=== PATIENT | female | born 1955 | race Caucasian/White ===

== ENCOUNTER 2017-05-28 14:44 | Emergency (ER) | payer MEDICARE | END 2017-05-28 16:17 | disposition home or self-care (01) | LOC: D.ER 14:44 | DX: S00.81XA Abrasion of other part of head, initial encounter (principal); W19.XXXA Unspecified fall, initial encounter; Y93.89 Activity, other specified; Y92.019 Unspecified place in single-family (private) house as the place of occurrence of the external cause; R51 Headache; I10 Essential (primary) hypertension; E11.9 Type 2 diabetes mellitus without complications; Z79.4 Long term (current) use of insulin; K21.9 Gastro-esophageal reflux disease without esophagitis; J44.9 Chronic obstructive pulmonary disease, unspecified; I50.9 Heart failure, unspecified ==

== ENCOUNTER 2017-11-14 17:07 | Inpatient (IN) | payer MEDICARE ==
[~2017-11-14] VITALS: Ht 157.5 cm; Wt 83.6 kg
--- NOTE | ~2017-11-14 | OP ---
PATIENT NAME: SARY REVELES MEDICAL RECORD: [id number] :57 LOCATION:D.[facility] D.[facility]07 ADMISSION DATE:11/14/17 SURGEON: YEMI RICHEY MD DATE OF OPERATION: 11/22/2017 SURGEON: Yemi Richey MD ANESTHESIA: General endotracheal, Edward Donovan MD OPERATIONS PERFORMED: 1. Video-assisted thoracoscopy, right hemithorax, for pleural fluid cultures and cytology. 2. Lung biopsy, right lower lobe. 3. Tissue cultures. 4. Bronchoscopy with bronchioalveolar lavage, right lower lobe, for cultures and cytology. PREOPERATIVE DIAGNOSIS: Recurrent right pleural effusion. POSTOPERATIVE DIAGNOSIS: Recurrent right pleural effusion. INDICATION FOR OPERATION: Recurrent right pleural effusion. FINDINGS OF THE OPERATION: Recurrent right pleural effusion. The lung was biopsied for cultures and histology. There were no obvious lymph nodes for resection. Cultures were taken for aerobe, anaerobe, TB, and fungus; both pleural fluid and tissue culture. Bronchoscopy demonstrated extrinsic compression of the lower lobe bronchus on the right. There were no obvious endobronchial lesions. Cultures from bronchioalveolar lavage was sent for aerobe, anaerobe, TB, and fungus. The bronchioalveolar lavage of the right lower lobe was also sent for cytology. ESTIMATED BLOOD LOSS: Less than 5 mL. DESCRIPTION OF PROCEDURE: After informed consent, adequate preoperative medication, and evaluation, the patient was brought to the operating room and placed on the table in the supine position. After induction of general endotracheal anesthesia and application of appropriate monitoring devices, the patient underwent exchange for a double lumen tube and flexible fiberoptic bronchoscopy. There were no obvious endobronchial lesions noted. The patient was then turned in left lateral decubitus position and the right chest was prepped and draped in sterile field utilizing Betadine scrub, alcohol, and Betadine solution. Betadine-impregnated drape was also used. Three ports were placed, one anterior fifth interspace, one posterior seventh interspace midscapular line, and one in the midaxillary line ninth interspace for the camera. The camera port was placed first. The other 2 were placed under direct vision. The lung was examined. Biopsies were taken of the lower lobe. The fluid was removed for aerobe, anaerobe, TB, fungus, and cytology. A search of the mediastinum was made for obvious lymph nodes and there were none obviously seen. The chest was irrigated and suctioned dry. The patient then underwent a talc poudrage after mechanical abrasion of the parietal pleura. Two chest tubes were placed, #28 Silastic, one anterior-superior and one posterior-inferior. The instrument count and sponge count were correct times 2. Wound was closed in layers utilizing 2-0 Vicryl on deep subcutaneous tissue. Skin was approximated with interrupted 2-0 TiCron sutures. Sterile dressings were applied. The OPERATIVE REPORT [id number] SARY REVELES patient tolerated the procedure well and was turned in a supine position. The exchange was made for a single lumen tube. The patient underwent flexible fiberoptic bronchoscopy. The orifice to the right lower lobe was narrowed, but there are no endobronchial lesions. Bronchioalveolar lavage was performed in the right lower lobe and culture was sent for aerobe, anaerobe, TB, and fungus. Another bronchoalveolar lavage of the lower lobe was done for cytology. The remainder of the tracheobronchial tree was normal. The scope was withdrawn. The patient was awakened and transferred to the ICU in stable condition. TRANSINT:[id number] Voice Confirmation ID: [id number] DOCUMENT ID: [id number] YEMI RICHEY MD at 1309 CC: [id number] DICTATION DATE: 11/22/17 1434 DIRECTOR TELECOMMUNICATIONS: 11/22/17 1505 ADM IN [place] [id number] [place] [id number]
--- NOTE | ~2017-11-14 | CN ---
PATIENT NAME:SARY REVELES MEDICAL RECORD: [id number] : 57 LOCATION:D. D.2130 ADMIT DATE: 11/14/17 ACCOUNT: [id number] CONSULTING PHYSICIAN: DARCY BELLE MD REFERRING PHYSICIAN: RUSTY PAYTON MD DATE OF CONSULTATION: 11/15/2017 CONSULT REQUESTING PHYSICIAN: Rusty Payton MD REASON FOR CONSULTATION: Large right-sided pleural effusion. HISTORY OF PRESENT ILLNESS: Ms. Reveles is a 62-year-old female who has a history of COPD. According to the patient 2-3 days ago, she has been sick and not feeling well. Yesterday, she was diaphoretic and she has a pleuritic type of chest pain. The patient came into the ER and evaluation workup showed she has leukocytosis as well as there is a large right-sided pleural effusion. The patient denies any weight loss. REVIEW OF SYSTEMS: As in history of present illness. PAST MEDICAL HISTORY: 1. COPD. 2. Coronary artery disease. 3. Hypertension. 4. Congestive heart failure. PAST SURGICAL HISTORY: 1. CABG. 2. Femoral popliteal bypass. 3. Tonsillectomy. 4. Surgery for carpal tunnel syndrome. ALLERGIES: SHE IS ALLERGIC TO CODEINE, LISINOPRIL. MEDICATIONS: [employer] is reviewed. PERSONAL AND SOCIAL HISTORY: The patient is an ex-smoker. She is a nondrinker. FAMILY HISTORY: Noncontributory. PHYSICAL EXAMINATION: GENERAL: Now, the patient is lying comfortable in bed. She is not in acute distress. VITAL SIGNS: The blood pressure is 108/50, pulse is 59, respiration is 18, temperature is 98.6, and SpO2 is 95% on 2 liters nasal cannula. HEENT: Conjunctivae are pink. Sclerae are not icteric. NECK: Supple, no JVD. CHEST: There are absent breath sounds on the right side with dullness on percussion. There is crackle. HEART: Rhythm regular, normal sound, no murmur. ABDOMEN: Soft, bowel sounds present. No hepatosplenomegaly. RECTAL: Deferred. EXTREMITIES: No cyanosis, no clubbing, no pedal edema. SKIN: Warm, normal turgor. CENTRAL NERVOUS SYSTEM: The patient is awake and alert. There are no obvious CONSULT REPORT [id number] SARY REVELES cranial nerve abnormality. The gait was not tested. IMAGING: CT scan of the chest: There is large right-sided pleural effusion. There is some reactive mediastinal paratracheal lymphadenopathy; 1. Nearly 2.5 cm in size. 2. A 4.7 cm adrenal adenoma. IMPRESSION: 1. Right-sided large pleural effusion, possible parapneumonic, possible associated with a congestive heart failure. 2. Pneumonia of right lower lobe, most likely community-acquired pneumonia. 3. Mediastinal lymphadenopathy, possible reactionary rule out malignant process. 4. Right compressive atelectasis of the lower lobe. 5. Acute exacerbation of chronic obstructive pulmonary disease. 6. Adrenal mass, possible adenoma. 7. Right-sided pleurisy. 8. History of congestive heart failure and coronary artery disease. RECOMMENDATION: 1. Start on Levaquin and Rocephin IV. 2. Continue nebulized medication. 3. We will proceed with CT-guided thoracentesis in the morning. 4. We will follow up labs and chest radiograph. Check alpha [address] Payton, thank you for involving me in the care of Ms. Reveles. TRANSINT:[id number] Voice Confirmation ID: [id number] DOCUMENT ID: [id number] DARCY BELLE MD at 1110 CC: [id number] DICTATION DATE: 11/15/171809 QUANTITATIVE STRATEGY ANALYST: 11/15/17 1842 DIS IN 12/11/17 [place] [id number] [place] [address]
[2017-11-14] MEDS ORDERED: [UNRECOGNIZED DRUG - REMARK] (17:17)
[2017-11-14] MEDS ORDERED: BP MED (17:17)
[2017-11-14 18:00] LABS: BASOPHILS 0.1 % (0-2); EOSINOPHILS 0.4 % (0-7); HEMATOCRIT 38.7 % (36.0-48.0); HEMOGLOBIN 12.7 g/dL (12-16); IMMATURE GRANULOCYTES 0.3 % (0-5); LYMPHOCYTES 9.1 % (15-50); MCH 29.5 pg (26.0-34.0); MCHC 32.8 g/dL (31.0-37.0); MEAN PLATELET VOLUME 9.2 fL (7.4-10.4); MONOCYTES 3.7 % (2-11); NEUTROPHILS 86.4 % (40-80); PLATELET COUNT 301 10x3/uL (130-400); RDW 15.1 % (11.5-14.5); WBC 13.1 10x3/uL (4.8-10.8)
[2017-11-14 18:50] LABS: ALBUMIN 3.3 g/dL (3.4-5.0); ALKALINE PHOSPHATASE 87 U/L (46-116); ALT (SGPT) 5 U/L (10-68); BILIRUBIN - TOTAL 0.48 mg/dL (0.2-1.3); CALC OSMOLALITY 291 mosm/kg (275-300); CARBON DIOXIDE 26.6 mmol/L (21.0-32.0); CHLORIDE - SERUM 101 mmol/L (98-107); CREATININE - SERUM 0.8 mg/dL (0.6-1.3); GLUCOSE 244 mg/dL (74-106); POTASSIUM - SERUM 3.3 mmol/L (3.5-5.1); PROTEIN - SERUM 7.8 g/dL (6.4-8.2); SODIUM 143 mmol/L (136-145); UREA NITROGEN 10 mg/dL (7-18); eGFR NON AFRICAN AMERICAN 77 mL/min (90-120)
[2017-11-14 19:05] VITALS: BP 225/83
[2017-11-14 19:27] LABS: APTT 28.9 SECONDS (22.8-39.4); INR 1.12 (0.85-1.17)
[2017-11-14 19:42] LABS: CKMB 0.7 U/L (0.0-3.6); CREATINE KINASE 66 UL (21-215); PRO BNP 2226 pg/mL (0-125)
[2017-11-14 20:34] VITALS: BP 218/91
[2017-11-14 21:22] VITALS: BP 193/67
[2017-11-14 22:19] VITALS: BP 160/56
[2017-11-15] VITALS (7 sets, daily range): BP systolic 102–191; BP diastolic 37–71
[2017-11-15 00:02] LABS: CKMB 0.9 U/L (0.0-3.6); CREATINE KINASE 52 UL (21-215); TROPONIN-I < 0.017 ng/mL (0.000-0.060)
[2017-11-15] MEDS ORDERED: HUMALOG 30100 UNITS/ SC (02:45)
[2017-11-15] MEDS ORDERED: NEURONTIN 300300 MG PO (02:46)
[2017-11-15] MEDS ORDERED: LANTUS INSULIN10 ML SC (02:46)
[2017-11-15 04:05] LABS: BASOPHILS 0 % (0-2); EOSINOPHILS 0 % (0-7); IMMATURE GRANULOCYTES 0.2 % (0-5); LYMPHOCYTES 9.6 % (15-50); MCH 28.9 pg (26.0-34.0); MCHC 32.4 g/dL (31.0-37.0); MCV 89.5 fL (80.0-100.0); MEAN PLATELET VOLUME 8.9 fL (7.4-10.4); MONOCYTES 0.6 % (2-11); NEUTROPHILS 89.6 % (40-80); PLATELET COUNT 267 10x3/uL (130-400)
[2017-11-15 04:55] LABS: ALBUMIN 2.7 g/dL (3.4-5.0); ALKALINE PHOSPHATASE 62 U/L (46-116); ALT (SGPT) 6 U/L (10-68); CALCIUM 8.5 mg/dL (8.5-10.1); CARBON DIOXIDE 28.3 mmol/L (21.0-32.0); CHLORIDE - SERUM 104 mmol/L (98-107); CKMB 0.8 U/L (0.0-3.6); CREATINE KINASE 39 UL (21-215); CREATININE - SERUM 0.8 mg/dL (0.6-1.3); POTASSIUM - SERUM 3.3 mmol/L (3.5-5.1); PROTEIN - SERUM 7.1 g/dL (6.4-8.2); SODIUM 141 mmol/L (136-145); TROPONIN-I < 0.017 ng/mL (0.000-0.060); UREA NITROGEN 10 mg/dL (7-18); eGFR NON AFRICAN AMERICAN 77 mL/min (90-120)
[2017-11-15 04:57] LABS: CALC OSMOLALITY 291 mosm/kg (275-300); GLUCOSE 323 mg/dL (74-106)
[2017-11-15] MEDS ORDERED: COREG6.25 MG PO (06:57)
[2017-11-15] MEDS ORDERED: ISOSORBIDE MON120 M1 PO (06:58)
[2017-11-15] MEDS ORDERED: HYDRALAZINE HCL25 MG PO (06:58)
[2017-11-15] MEDS ORDERED: LASIX40 MG PO (06:59)
[2017-11-15] MEDS ORDERED: BAYER CHEWABLE81 MG PO (06:59)
[2017-11-15] MEDS ORDERED: OMEPRAZOLE20 M1 PO (07:00)
[2017-11-15] MEDS ORDERED: SYMBICORT 16010.2 GM INH (07:00)
[2017-11-15] MEDS ORDERED: MS CONTIN15 MG PO (07:01)
[2017-11-15] MEDS ORDERED: PROVENTIL HFA6.7 GM INH (07:01)
[2017-11-15] MEDS ORDERED: ULTRAM50 MG PO (07:02)
[2017-11-15 10:44] LABS: CKMB 1.1 U/L (0.0-3.6); CREATINE KINASE 44 UL (21-215); TROPONIN-I < 0.017 ng/mL (0.000-0.060)
[2017-11-16 00:42] LABS: HEMATOCRIT 31.5 % (36.0-48.0); HEMOGLOBIN 10.5 g/dL (12-16); MCH 29.4 pg (26.0-34.0); MCHC 33.3 g/dL (31.0-37.0); MCV 88.2 fL (80.0-100.0); MEAN PLATELET VOLUME 7.9 fL (7.4-10.4); RBC 3.57 10x6/uL (4.00-5.40); RDW 15.5 % (11.5-14.5); WBC 12.6 10x3/uL (4.8-10.8)
[2017-11-16 07:23] LABS: BASOPHILS 0.1 % (0-2); EOSINOPHILS 0.4 % (0-7); HEMATOCRIT 34.3 % (36.0-48.0); HEMOGLOBIN 11.2 g/dL (12-16); IMMATURE GRANULOCYTES 0.4 % (0-5); LYMPHOCYTES 20.3 % (15-50); MCH 29.1 pg (26.0-34.0); MCHC 32.7 g/dL (31.0-37.0); MCV 89.1 fL (80.0-100.0); MONOCYTES 5.8 % (2-11); PLATELET COUNT 290 10x3/uL (130-400); RBC 3.85 10x6/uL (4.00-5.40); RDW 15.2 % (11.5-14.5); WBC 11.3 10x3/uL (4.8-10.8)
[2017-11-16 07:39] LABS: ALBUMIN 2.6 g/dL (3.4-5.0); ANION GAP 14.3 mmol/L (8-16); BILIRUBIN - TOTAL 0.16 mg/dL (0.2-1.3); CALCIUM 8.7 mg/dL (8.5-10.1); CARBON DIOXIDE 27.4 mmol/L (21.0-32.0); CREATININE - SERUM 0.9 mg/dL (0.6-1.3); PROTEIN - SERUM 6.8 g/dL (6.4-8.2)
[2017-11-16 07:42] LABS: POTASSIUM - SERUM 2.7 mmol/L (3.5-5.1)
[2017-11-16 08:01] VITALS: BP 130/53
[2017-11-16 09:19] LABS: INR 1.19 (0.85-1.17); PROTIME 14.7 SECONDS (11.6-15.0)
[2017-11-16 11:32] VITALS: BP 159/39
[2017-11-16 17:13] LABS: PROTEIN - BODY FLUID 3.9 G/DL
[2017-11-16 18:44] LABS: MACROPHAGES BF 28 %; MESOTHELIALS BF 12 %; NEUT - BF 13 %
[2017-11-16 20:33] VITALS: BP 155/49
[2017-11-17 05:43] VITALS: BP 160/50
[2017-11-17 06:06] LABS: BASOPHILS 0.1 % (0-2); EOSINOPHILS 0.7 % (0-7); HEMATOCRIT 34.9 % (36.0-48.0); HEMOGLOBIN 11.1 g/dL (12-16); IMMATURE GRANULOCYTES 0.3 % (0-5); LYMPHOCYTES 17.8 % (15-50); MCHC 31.8 g/dL (31.0-37.0); MONOCYTES 6.6 % (2-11); NEUTROPHILS 74.5 % (40-80); PLATELET COUNT 283 10x3/uL (130-400); RBC 3.83 10x6/uL (4.00-5.40); RDW 15.6 % (11.5-14.5); WBC 9.8 10x3/uL (4.8-10.8)
[2017-11-17 06:07] LABS: MCV 91.1 fL (80.0-100.0)
[2017-11-17 06:28] LABS: ALBUMIN 2.5 g/dL (3.4-5.0); BILIRUBIN - TOTAL 0.23 mg/dL (0.2-1.3); CALCIUM 8.6 mg/dL (8.5-10.1); CARBON DIOXIDE 28.4 mmol/L (21.0-32.0); CREATININE - SERUM 0.9 mg/dL (0.6-1.3); POTASSIUM - SERUM 3.4 mmol/L (3.5-5.1); PROTEIN - SERUM 6.7 g/dL (6.4-8.2)
[2017-11-17 08:49] VITALS: BP 197/69
[2017-11-17 11:30] VITALS: BP 158/44
[2017-11-17 16:07] LABS: CKMB 0.4 U/L (0.0-3.6); CREATINE KINASE 30 UL (21-215); TROPONIN-I < 0.017 ng/mL (0.000-0.060)
[2017-11-17 20:00] VITALS: BP 185/71
[2017-11-17 20:40] LABS: CKMB 0.3 U/L (0.0-3.6); CREATINE KINASE 30 UL (21-215); TROPONIN-I < 0.017 ng/mL (0.000-0.060)
[2017-11-18] VITALS: BP 184/45
[2017-11-18 00:41] LABS: HEMATOCRIT 32.6 % (36.0-48.0); HEMOGLOBIN 10.4 g/dL (12-16); MCHC 31.9 g/dL (31.0-37.0); MCV 90.8 fL (80.0-100.0); MEAN PLATELET VOLUME 8.8 fL (7.4-10.4); RBC 3.59 10x6/uL (4.00-5.40); RDW 15.4 % (11.5-14.5)
[2017-11-18 02:55] LABS: BASOPHILS 0.1 % (0-2); EOSINOPHILS 1.1 % (0-7); HEMATOCRIT 34.2 % (36.0-48.0); HEMOGLOBIN 10.9 g/dL (12-16); IMMATURE GRANULOCYTES 0.2 % (0-5); LYMPHOCYTES 22.9 % (15-50); MCH 29.2 pg (26.0-34.0); MCHC 31.9 g/dL (31.0-37.0); MCV 91.7 fL (80.0-100.0); MEAN PLATELET VOLUME 8.7 fL (7.4-10.4); MONOCYTES 6.8 % (2-11); NEUTROPHILS 68.9 % (40-80); PLATELET COUNT 248 10x3/uL (130-400); RBC 3.73 10x6/uL (4.00-5.40); RDW 15.4 % (11.5-14.5); WBC 9.3 10x3/uL (4.8-10.8)
[2017-11-18 03:13] LABS: ALBUMIN 2.4 g/dL (3.4-5.0); ALKALINE PHOSPHATASE 50 U/L (46-116); BILIRUBIN - TOTAL 0.29 mg/dL (0.2-1.3); CALCIUM 8.6 mg/dL (8.5-10.1); CARBON DIOXIDE 27.1 mmol/L (21.0-32.0); CHLORIDE - SERUM 109 mmol/L (98-107); CKMB 0.1 U/L (0.0-3.6); CREATINE KINASE 26 UL (21-215); CREATININE - SERUM 0.8 mg/dL (0.6-1.3); POTASSIUM - SERUM 3.8 mmol/L (3.5-5.1); PROTEIN - SERUM 6.6 g/dL (6.4-8.2); SODIUM 145 mmol/L (136-145); UREA NITROGEN 7 mg/dL (7-18); eGFR NON AFRICAN AMERICAN 77 mL/min (90-120)
[2017-11-18 03:14] LABS: ALT (SGPT) 5 U/L (10-68); CALC OSMOLALITY 285 mosm/kg (275-300); GLUCOSE 82 mg/dL (74-106); TROPONIN-I < 0.017 ng/mL (0.000-0.060)
[2017-11-18 04:00] VITALS: BP 186/57
[2017-11-18 08:41] VITALS: BP 199/64
[2017-11-18 11:48] VITALS: BP 161/59
[2017-11-18 17:07] LABS: AFB SPECIMEN PROCESSING Not Indicated (())
[2017-11-18 20:00] VITALS: BP 164/42
[2017-11-19 04:00] VITALS: BP 186/48
[2017-11-19 05:25] LABS: BASOPHILS 0.1 % (0-2); EOSINOPHILS 1.1 % (0-7); HEMATOCRIT 36.1 % (36.0-48.0); HEMOGLOBIN 11.4 g/dL (12-16); IMMATURE GRANULOCYTES 0.3 % (0-5); LYMPHOCYTES 13.9 % (15-50); MCHC 31.6 g/dL (31.0-37.0); MCV 91.9 fL (80.0-100.0); MEAN PLATELET VOLUME 9.2 fL (7.4-10.4); MONOCYTES 5.3 % (2-11); NEUTROPHILS 79.3 % (40-80); PLATELET COUNT 278 10x3/uL (130-400); RBC 3.93 10x6/uL (4.00-5.40); RDW 15.6 % (11.5-14.5); WBC 10.6 10x3/uL (4.8-10.8)
[2017-11-19 06:06] LABS: ALBUMIN 2.6 g/dL (3.4-5.0); ANION GAP 14.7 mmol/L (8-16); BILIRUBIN - TOTAL 0.18 mg/dL (0.2-1.3); CARBON DIOXIDE 26.5 mmol/L (21.0-32.0); CREATININE - SERUM 0.9 mg/dL (0.6-1.3); POTASSIUM - SERUM 4.2 mmol/L (3.5-5.1)
[2017-11-19 08:10] VITALS: BP 176/55
[2017-11-19 11:29] LABS: % SATURATION 14 % (15-55); IRON 30 ug/dl (35-150); TOTAL IRON BIND CAPACITY 204 ug/dl (260-445); UNSAT IRON BIND CAPACITY 174 ug/dl (150-375)
[2017-11-19 11:31] VITALS: BP 174/52
[2017-11-19 15:57] VITALS: BP 182/62
[2017-11-19 20:00] VITALS: BP 166/48
[2017-11-20 00:18] VITALS: BP 169/61
[2017-11-20 06:07] VITALS: BP 169/46
[2017-11-20 06:57] LABS: BASOPHILS 0.1 % (0-2); EOSINOPHILS 1.3 % (0-7); HEMATOCRIT 32.3 % (36.0-48.0); HEMOGLOBIN 10.3 g/dL (12-16); IMMATURE GRANULOCYTES 0.4 % (0-5); LYMPHOCYTES 18.4 % (15-50); MCH 28.8 pg (26.0-34.0); MCHC 31.9 g/dL (31.0-37.0); MCV 90.2 fL (80.0-100.0); MEAN PLATELET VOLUME 8.7 fL (7.4-10.4); MONOCYTES 6.5 % (2-11); NEUTROPHILS 73.3 % (40-80); PLATELET COUNT 242 10x3/uL (130-400); RBC 3.58 10x6/uL (4.00-5.40); RDW 15.5 % (11.5-14.5); WBC 8.9 10x3/uL (4.8-10.8)
[2017-11-20 07:27] LABS: FOLATE (FOLIC ACID) - SERUM 4.3 ng/mL (>3.0)
[2017-11-20 07:38] LABS: ALBUMIN 2.4 g/dL (3.4-5.0); ANION GAP 13.9 mmol/L (8-16); BILIRUBIN - TOTAL 0.21 mg/dL (0.2-1.3); CALCIUM 8.7 mg/dL (8.5-10.1); CARBON DIOXIDE 24.1 mmol/L (21.0-32.0); PROTEIN - SERUM 6.5 g/dL (6.4-8.2)
[2017-11-20 08:32] VITALS: BP 161/65
[2017-11-20 11:18] LABS: APPEARANCE CLEAR (CLEAR); BILIRUBIN NEGATIVE (NEGATIVE); COLOR STRAW (YELLOW); EPITHELIAL CELLS RARE /hpf (0-5); GLUCOSE NEGATIVE (NEGATIVE); KETONE NEGATIVE (NEGATIVE); NITRITE NEGATIVE (NEGATIVE); PROTEIN NEGATIVE (NEGATIVE); UROBILINOGEN NORMAL (NORMAL); WHITE CELLS - URINE OCC /hpf (0-5); YEAST RARE /hpf (NONE SEEN)
[2017-11-20 11:31] VITALS: BP 199/63
[2017-11-20 13:18] LABS: ANA REFLEX - ANTICHROMATIN ABS <0.2 AI (0.0-0.9); ANA REFLEX - CENTROMERE B ABS <0.2 AI (0.0-0.9); ANA REFLEX - DBL STRANDED DNA 2 IU/mL (0-9); ANA REFLEX - DIRECT Positive (Negative); ANA REFLEX - JO-1 AB <0.2 AI (0.0-0.9); ANA REFLEX - RNP ANTIBODIES 0.3 AI (0.0-0.9); ANA REFLEX - SCL-70 2.7 AI (0.0-0.9); ANA REFLEX - SJOGRENS AB SSA <0.2 AI (0.0-0.9); ANA REFLEX - SJOGRENS AB SSB <0.2 AI (0.0-0.9); ANA REFLEX - SMITH AB <0.2 AI (0.0-0.9)
[2017-11-20 14:19] VITALS: BMI 31.8
[2017-11-20 16:54] VITALS: BP 157/51
[2017-11-20 20:45] VITALS: BP 159/37
[2017-11-21 01:02] VITALS: BP 146/43
[2017-11-21 05:59] LABS: HEMATOCRIT 36.5 % (36.0-48.0); HEMOGLOBIN 11.4 g/dL (12-16); MCH 28.9 pg (26.0-34.0); MCHC 31.2 g/dL (31.0-37.0); RBC 3.95 10x6/uL (4.00-5.40); RDW 15.6 % (11.5-14.5); WBC 9.4 10x3/uL (4.8-10.8)
[2017-11-21 06:12] VITALS: BP 168/46
[2017-11-21 06:17] LABS: ALBUMIN 2.6 g/dL (3.4-5.0); ALKALINE PHOSPHATASE 54 U/L (46-116); ALT (SGPT) 6 U/L (10-68); BILIRUBIN - TOTAL 0.28 mg/dL (0.2-1.3); CALC OSMOLALITY 285 mosm/kg (275-300); CALCIUM 8.9 mg/dL (8.5-10.1); CARBON DIOXIDE 28.8 mmol/L (21.0-32.0); CHLORIDE - SERUM 106 mmol/L (98-107); CREATININE - SERUM 0.8 mg/dL (0.6-1.3); GLUCOSE 127 mg/dL (74-106); POTASSIUM - SERUM 3.7 mmol/L (3.5-5.1); PROTEIN - SERUM 7.4 g/dL (6.4-8.2); SODIUM 143 mmol/L (136-145); UREA NITROGEN 10 mg/dL (7-18); eGFR NON AFRICAN AMERICAN 77 mL/min (90-120)
[2017-11-21 06:34] LABS: MCV 92.4 fL (80.0-100.0)
[2017-11-21 08:21] VITALS: BP 179/57
[2017-11-21 08:24] LABS: APTT 38.3 SECONDS (22.8-39.4)
[2017-11-21 08:29] LABS: INR 1.18 (0.85-1.17); PROTIME 14.6 SECONDS (11.6-15.0)
[2017-11-21 11:13] LABS: FUNGUS STAIN Final report (())
[2017-11-21 11:52] VITALS: BP 137/48
[2017-11-21 15:47] VITALS: BP 160/55
[2017-11-21 20:35] VITALS: BP 146/61
[2017-11-22] VITALS (41 sets, daily range): BP systolic 103–153; BP diastolic 32–74
[2017-11-22 00:50] LABS: BASOPHILS 0.1 % (0-2); EOSINOPHILS 1.7 % (0-7); HEMATOCRIT 32.3 % (36.0-48.0); HEMOGLOBIN 10.3 g/dL (12-16); IMMATURE GRANULOCYTES 0.5 % (0-5); MCHC 31.9 g/dL (31.0-37.0); MEAN PLATELET VOLUME 8.9 fL (7.4-10.4); MONOCYTES 6.4 % (2-11); NEUTROPHILS 74.3 % (40-80); PLATELET COUNT 284 10x3/uL (130-400); RBC 3.55 10x6/uL (4.00-5.40); RDW 15.3 % (11.5-14.5); WBC 10.7 10x3/uL (4.8-10.8)
[2017-11-22 00:56] LABS: ANION GAP 10.6 mmol/L (8-16); CALCIUM 8.8 mg/dL (8.5-10.1); CREATININE - SERUM 1.2 mg/dL (0.6-1.3); POTASSIUM - SERUM 3.6 mmol/L (3.5-5.1)
[2017-11-23] VITALS (89 sets, daily range): BP systolic 104–174; BP diastolic 28–76
[2017-11-23 04:15] LABS: BASOPHILS 0.1 % (0-2); EOSINOPHILS 0.6 % (0-7); HEMATOCRIT 33.3 % (36.0-48.0); HEMOGLOBIN 10.4 g/dL (12-16); IMMATURE GRANULOCYTES 0.3 % (0-5); LYMPHOCYTES 11.2 % (15-50); MCH 28.5 pg (26.0-34.0); MCHC 31.2 g/dL (31.0-37.0); MCV 91.2 fL (80.0-100.0); MEAN PLATELET VOLUME 8.7 fL (7.4-10.4); MONOCYTES 7.1 % (2-11); NEUTROPHILS 80.7 % (40-80); PLATELET COUNT 268 10x3/uL (130-400); RBC 3.65 10x6/uL (4.00-5.40); RDW 15.2 % (11.5-14.5); WBC 12.9 10x3/uL (4.8-10.8)
[2017-11-23 04:32] LABS: ALBUMIN 2.1 g/dL (3.4-5.0); ANION GAP 8.4 mmol/L (8-16); BILIRUBIN - TOTAL 0.27 mg/dL (0.2-1.3); CARBON DIOXIDE 30.2 mmol/L (21.0-32.0); CREATININE - SERUM 1.1 mg/dL (0.6-1.3); POTASSIUM - SERUM 3.6 mmol/L (3.5-5.1); PROTEIN - SERUM 6.2 g/dL (6.4-8.2)
[2017-11-24] VITALS (62 sets, daily range): BP systolic 104–160; BP diastolic 26–72
[2017-11-24 06:27] LABS: BASOPHILS 0.1 % (0-2); EOSINOPHILS 0.7 % (0-7); HEMATOCRIT 29.7 % (36.0-48.0); HEMOGLOBIN 9.3 g/dL (12-16); IMMATURE GRANULOCYTES 0.4 % (0-5); LYMPHOCYTES 8.5 % (15-50); MCH 28.4 pg (26.0-34.0); MCHC 31.3 g/dL (31.0-37.0); MCV 90.8 fL (80.0-100.0); MEAN PLATELET VOLUME 8.6 fL (7.4-10.4); MONOCYTES 6.5 % (2-11); NEUTROPHILS 83.8 % (40-80); PLATELET COUNT 251 10x3/uL (130-400); RBC 3.27 10x6/uL (4.00-5.40); RDW 15.3 % (11.5-14.5)
[2017-11-24 07:03] LABS: ALBUMIN 1.8 g/dL (3.4-5.0); ANION GAP 10.9 mmol/L (8-16); BILIRUBIN - TOTAL 0.29 mg/dL (0.2-1.3); CALCIUM 8.2 mg/dL (8.5-10.1); CARBON DIOXIDE 25.9 mmol/L (21.0-32.0); CREATININE - SERUM 0.9 mg/dL (0.6-1.3); POTASSIUM - SERUM 3.8 mmol/L (3.5-5.1); PROTEIN - SERUM 5.8 g/dL (6.4-8.2)
[2017-11-24 18:07] LABS: AFB SPECIMEN PROCESSING Not Indicated (())
[2017-11-24 18:07] LABS: AFB SPECIMEN PROCESSING Concentration (())
[2017-11-24 18:07] LABS: AFB SPECIMEN PROCESSING Concentration (())
[2017-11-25] VITALS (24 sets, daily range): BP systolic 99–152; BP diastolic 31–56
[2017-11-25 02:24] LABS: HEMATOCRIT 27.2 % (36.0-48.0); HEMOGLOBIN 8.5 g/dL (12-16); MCH 28.9 pg (26.0-34.0); MCHC 31.3 g/dL (31.0-37.0); MCV 92.5 fL (80.0-100.0); MEAN PLATELET VOLUME 8.7 fL (7.4-10.4); RBC 2.94 10x6/uL (4.00-5.40); RDW 15.6 % (11.5-14.5); WBC 11.8 10x3/uL (4.8-10.8)
[2017-11-25 05:21] LABS: BASOPHILS 0.1 % (0-2); EOSINOPHILS 0.6 % (0-7); HEMATOCRIT 29.7 % (36.0-48.0); HEMOGLOBIN 9.2 g/dL (12-16); IMMATURE GRANULOCYTES 0.2 % (0-5); LYMPHOCYTES 6.4 % (15-50); MCH 28.8 pg (26.0-34.0); MCV 92.8 fL (80.0-100.0); MEAN PLATELET VOLUME 8.8 fL (7.4-10.4); MONOCYTES 5.5 % (2-11); NEUTROPHILS 87.2 % (40-80); PLATELET COUNT 251 10x3/uL (130-400); RDW 15.5 % (11.5-14.5)
[2017-11-25 05:33] LABS: ALBUMIN 1.8 g/dL (3.4-5.0); BILIRUBIN - TOTAL 0.46 mg/dL (0.2-1.3); CARBON DIOXIDE 27.8 mmol/L (21.0-32.0); CREATININE - SERUM 0.9 mg/dL (0.6-1.3); POTASSIUM - SERUM 3.8 mmol/L (3.5-5.1)
[2017-11-26] VITALS (23 sets, daily range): BP systolic 101–182; BP diastolic 29–89; Ht 157.5 cm; Wt 83.6 kg
[2017-11-26 06:53] LABS: BASOPHILS 0.2 % (0-2); EOSINOPHILS 1.1 % (0-7); HEMATOCRIT 29.7 % (36.0-48.0); HEMOGLOBIN 9.4 g/dL (12-16); IMMATURE GRANULOCYTES 0.4 % (0-5); LYMPHOCYTES 8.3 % (15-50); MCH 28.9 pg (26.0-34.0); MCHC 31.6 g/dL (31.0-37.0); MCV 91.4 fL (80.0-100.0); MONOCYTES 5.9 % (2-11); NEUTROPHILS 84.1 % (40-80); PLATELET COUNT 289 10x3/uL (130-400); RBC 3.25 10x6/uL (4.00-5.40); RDW 15.4 % (11.5-14.5)
[2017-11-26 07:11] LABS: CALC OSMOLALITY 282 mosm/kg (275-300); CALCIUM 8.2 mg/dL (8.5-10.1); CARBON DIOXIDE 25.5 mmol/L (21.0-32.0); CHLORIDE - SERUM 104 mmol/L (98-107); CREATININE - SERUM 0.8 mg/dL (0.6-1.3); GLUCOSE 182 mg/dL (74-106); POTASSIUM - SERUM 3.6 mmol/L (3.5-5.1); SODIUM 140 mmol/L (136-145); UREA NITROGEN 9 mg/dL (7-18); eGFR NON AFRICAN AMERICAN 77 mL/min (90-120)
[2017-11-26 09:08] LABS: FUNGUS STAIN Final report (())
[2017-11-26 09:08] LABS: FUNGUS STAIN Final report (())
[2017-11-26 09:08] LABS: FUNGUS STAIN Final report (())
[2017-11-27] VITALS (17 sets, daily range): BP systolic 101–186; BP diastolic 33–97
[2017-11-27 04:02] LABS: HEMATOCRIT 28.8 % (36.0-48.0); HEMOGLOBIN 9.2 g/dL (12-16); MCH 28.8 pg (26.0-34.0); MCHC 31.9 g/dL (31.0-37.0); MCV 90.3 fL (80.0-100.0); MEAN PLATELET VOLUME 8.6 fL (7.4-10.4); RBC 3.19 10x6/uL (4.00-5.40); RDW 15.5 % (11.5-14.5); WBC 11.4 10x3/uL (4.8-10.8)
[2017-11-27 04:15] LABS: ALBUMIN 1.8 g/dL (3.4-5.0); ANION GAP 13.2 mmol/L (8-16); BILIRUBIN - TOTAL 0.28 mg/dL (0.2-1.3); CALCIUM 8.3 mg/dL (8.5-10.1); CARBON DIOXIDE 26.1 mmol/L (21.0-32.0); CREATININE - SERUM 0.9 mg/dL (0.6-1.3); POTASSIUM - SERUM 3.3 mmol/L (3.5-5.1)
[2017-11-28 01:42] VITALS: BP 146/43
[2017-11-28 05:46] LABS: HEMATOCRIT 31.8 % (36.0-48.0); MCH 28.6 pg (26.0-34.0); MCHC 31.4 g/dL (31.0-37.0); MCV 90.9 fL (80.0-100.0); MEAN PLATELET VOLUME 8.8 fL (7.4-10.4); RBC 3.5 10x6/uL (4.00-5.40); RDW 15.9 % (11.5-14.5); WBC 11.4 10x3/uL (4.8-10.8)
[2017-11-28 06:06] LABS: ALBUMIN 1.9 g/dL (3.4-5.0); ALKALINE PHOSPHATASE 66 U/L (46-116); ALT (SGPT) 7 U/L (10-68); BILIRUBIN - TOTAL 0.28 mg/dL (0.2-1.3); CALCIUM 8.2 mg/dL (8.5-10.1); CARBON DIOXIDE 26.5 mmol/L (21.0-32.0); CHLORIDE - SERUM 106 mmol/L (98-107); CREATININE - SERUM 0.8 mg/dL (0.6-1.3); GLUCOSE 196 mg/dL (74-106); POTASSIUM - SERUM 3.9 mmol/L (3.5-5.1); PROTEIN - SERUM 6.3 g/dL (6.4-8.2); SODIUM 141 mmol/L (136-145); eGFR NON AFRICAN AMERICAN 77 mL/min (90-120)
[2017-11-28 06:07] LABS: CALC OSMOLALITY 282 mosm/kg (275-300); UREA NITROGEN 4 mg/dL (7-18)
[2017-11-28 08:17] VITALS: BP 166/48
[2017-11-28 10:58] VITALS: BP 152/53
[2017-11-28 16:12] VITALS: BP 146/64
[2017-11-28 20:25] VITALS: BP 127/55
[2017-11-29 01:16] VITALS: BP 138/45
[2017-11-29 06:33] LABS: HEMATOCRIT 31.6 % (36.0-48.0); HEMOGLOBIN 9.8 g/dL (12-16); MCH 28.7 pg (26.0-34.0); MCV 92.7 fL (80.0-100.0); MEAN PLATELET VOLUME 9.1 fL (7.4-10.4); RBC 3.41 10x6/uL (4.00-5.40); WBC 13.5 10x3/uL (4.8-10.8)
[2017-11-29 06:59] LABS: ALBUMIN 1.9 g/dL (3.4-5.0); ALKALINE PHOSPHATASE 52 U/L (46-116); CALC OSMOLALITY 280 mosm/kg (275-300); CALCIUM 8.2 mg/dL (8.5-10.1); CARBON DIOXIDE 27.6 mmol/L (21.0-32.0); CHLORIDE - SERUM 106 mmol/L (98-107); CREATININE - SERUM 0.7 mg/dL (0.6-1.3); GLUCOSE 159 mg/dL (74-106); POTASSIUM - SERUM 3.7 mmol/L (3.5-5.1); PROTEIN - SERUM 6.1 g/dL (6.4-8.2); SODIUM 141 mmol/L (136-145); UREA NITROGEN 5 mg/dL (7-18); eGFR NON AFRICAN AMERICAN 90 mL/min (90-120)
[2017-11-29 07:11] LABS: ALT (SGPT) 9 U/L (10-68)
[2017-11-29 08:01] VITALS: BP 156/49
[2017-11-29 11:21] VITALS: BP 159/52
[2017-11-29 15:33] VITALS: BP 141/55
[2017-11-29 20:57] VITALS: BP 140/47
[2017-11-30 04:00] VITALS: BP 159/63
[2017-11-30 06:54] LABS: HEMATOCRIT 31.2 % (36.0-48.0); HEMOGLOBIN 9.9 g/dL (12-16); MCHC 31.7 g/dL (31.0-37.0); MCV 91.5 fL (80.0-100.0); RBC 3.41 10x6/uL (4.00-5.40); RDW 16.2 % (11.5-14.5); WBC 11.3 10x3/uL (4.8-10.8)
[2017-11-30 07:14] LABS: ALKALINE PHOSPHATASE 53 U/L (46-116); ALT (SGPT) 8 U/L (10-68); BILIRUBIN - TOTAL 0.33 mg/dL (0.2-1.3); CALC OSMOLALITY 282 mosm/kg (275-300); CALCIUM 8.1 mg/dL (8.5-10.1); CARBON DIOXIDE 28.2 mmol/L (21.0-32.0); CHLORIDE - SERUM 105 mmol/L (98-107); CREATININE - SERUM 0.7 mg/dL (0.6-1.3); GLUCOSE 172 mg/dL (74-106); POTASSIUM - SERUM 3.4 mmol/L (3.5-5.1); PROTEIN - SERUM 6.3 g/dL (6.4-8.2); SODIUM 141 mmol/L (136-145); UREA NITROGEN 6 mg/dL (7-18); eGFR NON AFRICAN AMERICAN 90 mL/min (90-120)
[2017-11-30 08:30] VITALS: BP 174/66
[2017-11-30 09:03] LABS: APTT 35.2 SECONDS (22.8-39.4); INR 1.3 (0.85-1.17); PROTIME 15.8 SECONDS (11.6-15.0)
[2017-11-30 12:01] VITALS: BP 173/68
[2017-11-30 12:09] LABS: PROTEIN - BODY FLUID 2.2 G/DL
[2017-11-30 12:25] LABS: NEUT - BF 22 %
[2017-11-30 20:00] VITALS: BP 155/52
[2017-12-01] VITALS: BP 140/45
[2017-12-01 04:00] VITALS: BP 158/49
[2017-12-01 05:23] LABS: HEMATOCRIT 31.6 % (36.0-48.0); HEMOGLOBIN 9.7 g/dL (12-16); MCH 28.6 pg (26.0-34.0); MCHC 30.7 g/dL (31.0-37.0); MCV 93.2 fL (80.0-100.0); MEAN PLATELET VOLUME 8.7 fL (7.4-10.4); RBC 3.39 10x6/uL (4.00-5.40); RDW 16.7 % (11.5-14.5); WBC 9.8 10x3/uL (4.8-10.8)
[2017-12-01 06:25] LABS: ALBUMIN 1.9 g/dL (3.4-5.0); ALKALINE PHOSPHATASE 41 U/L (46-116); ALT (SGPT) 9 U/L (10-68); BILIRUBIN - TOTAL 0.31 mg/dL (0.2-1.3); CALC OSMOLALITY 279 mosm/kg (275-300); CHLORIDE - SERUM 104 mmol/L (98-107); CREATININE - SERUM 0.8 mg/dL (0.6-1.3); GLUCOSE 154 mg/dL (74-106); POTASSIUM - SERUM 3.2 mmol/L (3.5-5.1); SODIUM 140 mmol/L (136-145); UREA NITROGEN 6 mg/dL (7-18); eGFR NON AFRICAN AMERICAN 77 mL/min (90-120)
[2017-12-01 07:59] VITALS: BP 136/72
[2017-12-01 11:06] VITALS: BP 132/66
[2017-12-01 15:06] VITALS: BP 130/64
[2017-12-01 20:00] VITALS: BP 125/39
[2017-12-02] VITALS: BP 133/41
[2017-12-02 04:00] VITALS: BP 132/39
[2017-12-02 06:25] LABS: CARBON DIOXIDE 30.9 mmol/L (21.0-32.0); CHLORIDE - SERUM 104 mmol/L (98-107); CREATININE - SERUM 0.8 mg/dL (0.6-1.3); POTASSIUM - SERUM 3.5 mmol/L (3.5-5.1); SODIUM 138 mmol/L (136-145); eGFR NON AFRICAN AMERICAN 77 mL/min (90-120)
[2017-12-02 06:26] LABS: CALC OSMOLALITY 279 mosm/kg (275-300); GLUCOSE 225 mg/dL (74-106); INR 1.38 (0.85-1.17); PROTIME 16.5 SECONDS (11.6-15.0); UREA NITROGEN 4 mg/dL (7-18)
[2017-12-02 06:50] LABS: BASOPHILS 0.1 % (0-2); EOSINOPHILS 0.8 % (0-7); HEMATOCRIT 30.4 % (36.0-48.0); HEMOGLOBIN 9.4 g/dL (12-16); IMMATURE GRANULOCYTES 0.7 % (0-5); LYMPHOCYTES 11.1 % (15-50); MCH 28.9 pg (26.0-34.0); MCHC 30.9 g/dL (31.0-37.0); MCV 93.5 fL (80.0-100.0); MEAN PLATELET VOLUME 9.3 fL (7.4-10.4); MONOCYTES 7.4 % (2-11); NEUTROPHILS 79.9 % (40-80); PLATELET COUNT 361 10x3/uL (130-400); RBC 3.25 10x6/uL (4.00-5.40); RDW 16.9 % (11.5-14.5)
[2017-12-02 08:43] VITALS: BP 132/86
[2017-12-02 11:19] VITALS: BP 136/79
[2017-12-02 15:27] VITALS: BP 143/73
[2017-12-02 20:00] VITALS: BP 133/41
[2017-12-03 04:00] VITALS: BP 142/50
[2017-12-03 06:08] LABS: BASOPHILS 0.1 % (0-2); EOSINOPHILS 1.3 % (0-7); HEMATOCRIT 30.3 % (36.0-48.0); HEMOGLOBIN 9.3 g/dL (12-16); IMMATURE GRANULOCYTES 0.5 % (0-5); LYMPHOCYTES 12.2 % (15-50); MCHC 30.7 g/dL (31.0-37.0); MCV 94.4 fL (80.0-100.0); MEAN PLATELET VOLUME 9.1 fL (7.4-10.4); MONOCYTES 8.5 % (2-11); NEUTROPHILS 77.4 % (40-80); PLATELET COUNT 372 10x3/uL (130-400); RBC 3.21 10x6/uL (4.00-5.40); RDW 16.9 % (11.5-14.5); WBC 10.6 10x3/uL (4.8-10.8)
[2017-12-03 06:42] LABS: ALBUMIN 1.9 g/dL (3.4-5.0); ALKALINE PHOSPHATASE 44 U/L (46-116); ALT (SGPT) 8 U/L (10-68); BILIRUBIN - TOTAL 0.27 mg/dL (0.2-1.3); CALC OSMOLALITY 281 mosm/kg (275-300); CALCIUM 7.9 mg/dL (8.5-10.1); CARBON DIOXIDE 29.4 mmol/L (21.0-32.0); CHLORIDE - SERUM 104 mmol/L (98-107); CREATININE - SERUM 0.8 mg/dL (0.6-1.3); POTASSIUM - SERUM 3.2 mmol/L (3.5-5.1); PROTEIN - SERUM 5.9 g/dL (6.4-8.2); SODIUM 141 mmol/L (136-145); UREA NITROGEN 5 mg/dL (7-18); eGFR NON AFRICAN AMERICAN 77 mL/min (90-120)
[2017-12-03 06:47] LABS: GLUCOSE 162 mg/dL (74-106)
[2017-12-03 08:47] VITALS: BP 141/37
[2017-12-03 13:46] LABS: FUNGUS STAIN Final report (())
[2017-12-03 17:26] VITALS: BP 147/55
[2017-12-03 20:00] VITALS: BP 149/56
[2017-12-04] VITALS: BP 103/67
[2017-12-04 05:53] LABS: BASOPHILS 0 % (0-2); HEMATOCRIT 32.5 % (36.0-48.0); HEMOGLOBIN 9.9 g/dL (12-16); IMMATURE GRANULOCYTES 0.4 % (0-5); LYMPHOCYTES 11.5 % (15-50); MCH 28.6 pg (26.0-34.0); MCHC 30.5 g/dL (31.0-37.0); MCV 93.9 fL (80.0-100.0); MONOCYTES 8.1 % (2-11); PLATELET COUNT 367 10x3/uL (130-400); RBC 3.46 10x6/uL (4.00-5.40); WBC 11.3 10x3/uL (4.8-10.8)
[2017-12-04 06:24] LABS: ALKALINE PHOSPHATASE 42 U/L (46-116); ALT (SGPT) 7 U/L (10-68); BILIRUBIN - TOTAL 0.33 mg/dL (0.2-1.3); CALC OSMOLALITY 277 mosm/kg (275-300); CALCIUM 7.8 mg/dL (8.5-10.1); CARBON DIOXIDE 33.7 mmol/L (21.0-32.0); CHLORIDE - SERUM 103 mmol/L (98-107); CREATININE - SERUM 0.8 mg/dL (0.6-1.3); GLUCOSE 153 mg/dL (74-106); POTASSIUM - SERUM 3.6 mmol/L (3.5-5.1); PROTEIN - SERUM 6.1 g/dL (6.4-8.2); SODIUM 140 mmol/L (136-145); eGFR NON AFRICAN AMERICAN 77 mL/min (90-120)
[2017-12-04 06:25] LABS: UREA NITROGEN 2 mg/dL (7-18)
[2017-12-04 08:33] VITALS: BP 157/56
[2017-12-04 11:10] LABS: APPEARANCE TURBID (CLEAR); BILIRUBIN NEGATIVE (NEGATIVE); COLOR STRAW (YELLOW); GLUCOSE NEGATIVE (NEGATIVE); KETONE NEGATIVE (NEGATIVE); NITRITE NEGATIVE (NEGATIVE); PROTEIN NEGATIVE (NEGATIVE); SPECIFIC GRAVITY 1.005 (1.005-1.020); UROBILINOGEN NORMAL (NORMAL)
[2017-12-04 11:11] LABS: RED CELLS - URINE RARE /hpf (0-5); WHITE CELLS - URINE >50 /hpf (0-5)
[2017-12-04 11:12] LABS: BACTERIA MODERATE /hpf (NONE SEEN); MUCUS <1+ /lpf (NONE SEEN)
[2017-12-04 11:43] VITALS: BP 147/65
[2017-12-04 15:42] VITALS: BP 156/79
[2017-12-04 20:23] VITALS: BP 118/44
[2017-12-05 00:47] VITALS: BP 123/34
[2017-12-05 05:33] LABS: BASOPHILS 0.1 % (0-2); EOSINOPHILS 0.9 % (0-7); HEMATOCRIT 32.5 % (36.0-48.0); IMMATURE GRANULOCYTES 0.5 % (0-5); LYMPHOCYTES 12.7 % (15-50); MCH 29.1 pg (26.0-34.0); MCHC 30.8 g/dL (31.0-37.0); MCV 94.5 fL (80.0-100.0); MEAN PLATELET VOLUME 9.2 fL (7.4-10.4); MONOCYTES 7.2 % (2-11); NEUTROPHILS 78.6 % (40-80); PLATELET COUNT 399 10x3/uL (130-400); RBC 3.44 10x6/uL (4.00-5.40); RDW 16.9 % (11.5-14.5); WBC 10.8 10x3/uL (4.8-10.8)
[2017-12-05 05:50] LABS: ALKALINE PHOSPHATASE 49 U/L (46-116); BILIRUBIN - TOTAL 0.31 mg/dL (0.2-1.3); CARBON DIOXIDE 33.6 mmol/L (21.0-32.0); CHLORIDE - SERUM 102 mmol/L (98-107); CREATININE - SERUM 0.8 mg/dL (0.6-1.3); PROTEIN - SERUM 6.3 g/dL (6.4-8.2); SODIUM 140 mmol/L (136-145); eGFR NON AFRICAN AMERICAN 77 mL/min (90-120)
[2017-12-05 05:57] LABS: APTT 37.5 SECONDS (22.8-39.4); INR 1.6 (0.85-1.17); PROTIME 18.5 SECONDS (11.6-15.0)
[2017-12-05 06:01] VITALS: BP 114/33
[2017-12-05 06:03] LABS: ALT (SGPT) 9 U/L (10-68); CALC OSMOLALITY 282 mosm/kg (275-300); GLUCOSE 225 mg/dL (74-106); POTASSIUM - SERUM 4.3 mmol/L (3.5-5.1); UREA NITROGEN 3 mg/dL (7-18)
[2017-12-05 08:10] VITALS: BP 132/71
[2017-12-05 11:02] VITALS: BP 136/77
[2017-12-05 14:47] VITALS: BP 151/58
[2017-12-05 20:22] VITALS: BP 145/43
[2017-12-06] VITALS (12 sets, daily range): BP systolic 125–182; BP diastolic 49–94
[2017-12-06 05:55] LABS: BASOPHILS 0.1 % (0-2); EOSINOPHILS 0.8 % (0-7); HEMATOCRIT 35.2 % (36.0-48.0); HEMOGLOBIN 10.9 g/dL (12-16); IMMATURE GRANULOCYTES 0.5 % (0-5); LYMPHOCYTES 9.2 % (15-50); MCH 29.1 pg (26.0-34.0); MCV 94.1 fL (80.0-100.0); MEAN PLATELET VOLUME 9.1 fL (7.4-10.4); MONOCYTES 7.6 % (2-11); NEUTROPHILS 81.8 % (40-80); PLATELET COUNT 370 10x3/uL (130-400); RBC 3.74 10x6/uL (4.00-5.40); RDW 17.1 % (11.5-14.5)
[2017-12-06 05:56] LABS: WBC 14.3 10x3/uL (4.8-10.8)
[2017-12-06 06:04] LABS: INR 1.52 (0.85-1.17); PROTIME 17.8 SECONDS (11.6-15.0)
[2017-12-06 06:12] LABS: ALBUMIN 2.1 g/dL (3.4-5.0); ALKALINE PHOSPHATASE 52 U/L (46-116); BILIRUBIN - TOTAL 0.47 mg/dL (0.2-1.3); CALCIUM 8.6 mg/dL (8.5-10.1); CARBON DIOXIDE 30.6 mmol/L (21.0-32.0); CHLORIDE - SERUM 102 mmol/L (98-107); CREATININE - SERUM 0.8 mg/dL (0.6-1.3); POTASSIUM - SERUM 4.6 mmol/L (3.5-5.1); PROTEIN - SERUM 6.9 g/dL (6.4-8.2); SODIUM 139 mmol/L (136-145); eGFR NON AFRICAN AMERICAN 77 mL/min (90-120)
[2017-12-06 06:14] LABS: ALT (SGPT) 6 U/L (10-68); CALC OSMOLALITY 279 mosm/kg (275-300); GLUCOSE 172 mg/dL (74-106); UREA NITROGEN 6 mg/dL (7-18)
[2017-12-06 16:42] LABS: PROTEIN - BODY FLUID 2.6 G/DL
[2017-12-06 18:02] LABS: MACROPHAGES BF 3 %; NEUT - BF 22 %
[2017-12-06 21:06] LABS: AFB SPECIMEN PROCESSING Concentration (())
[2017-12-07] VITALS: BP 149/59
[2017-12-07 04:00] VITALS: BP 107/41
[2017-12-07 05:37] LABS: BASOPHILS 0.1 % (0-2); EOSINOPHILS 0.7 % (0-7); HEMATOCRIT 32.8 % (36.0-48.0); HEMOGLOBIN 10.4 g/dL (12-16); IMMATURE GRANULOCYTES 0.4 % (0-5); LYMPHOCYTES 7.8 % (15-50); MCH 29.6 pg (26.0-34.0); MCHC 31.7 g/dL (31.0-37.0); MCV 93.4 fL (80.0-100.0); MEAN PLATELET VOLUME 9.2 fL (7.4-10.4); MONOCYTES 8.1 % (2-11); NEUTROPHILS 82.9 % (40-80); PLATELET COUNT 357 10x3/uL (130-400); RBC 3.51 10x6/uL (4.00-5.40); RDW 16.9 % (11.5-14.5); WBC 14.9 10x3/uL (4.8-10.8)
[2017-12-07 05:56] LABS: ALKALINE PHOSPHATASE 51 U/L (46-116); BILIRUBIN - TOTAL 0.37 mg/dL (0.2-1.3); CALCIUM 8.4 mg/dL (8.5-10.1); CARBON DIOXIDE 30.6 mmol/L (21.0-32.0); CHLORIDE - SERUM 99 mmol/L (98-107); CREATININE - SERUM 0.8 mg/dL (0.6-1.3); GLUCOSE 189 mg/dL (74-106); POTASSIUM - SERUM 4.9 mmol/L (3.5-5.1); PROTEIN - SERUM 6.6 g/dL (6.4-8.2); SODIUM 136 mmol/L (136-145); eGFR NON AFRICAN AMERICAN 77 mL/min (90-120)
[2017-12-07 05:59] LABS: ALT (SGPT) 6 U/L (10-68); CALC OSMOLALITY 275 mosm/kg (275-300); UREA NITROGEN 9 mg/dL (7-18)
[2017-12-07 09:30] VITALS: BP 119/55
[2017-12-07 12:47] VITALS: BP 107/40
[2017-12-07 16:54] VITALS: BP 101/45
[2017-12-07 18:09] LABS: AFB SPECIMEN PROCESSING Concentration (())
[2017-12-07 20:30] VITALS: BP 105/57
[2017-12-08] VITALS: BP 123/50
[2017-12-08 04:00] VITALS: BP 132/41
[2017-12-08 06:31] LABS: BASOPHILS 0.1 % (0-2); EOSINOPHILS 0.8 % (0-7); HEMATOCRIT 33.7 % (36.0-48.0); HEMOGLOBIN 10.4 g/dL (12-16); IMMATURE GRANULOCYTES 0.3 % (0-5); MCH 28.9 pg (26.0-34.0); MCHC 30.9 g/dL (31.0-37.0); MCV 93.6 fL (80.0-100.0); MEAN PLATELET VOLUME 9.1 fL (7.4-10.4); MONOCYTES 8.3 % (2-11); NEUTROPHILS 81.5 % (40-80); PLATELET COUNT 300 10x3/uL (130-400); RDW 16.8 % (11.5-14.5)
[2017-12-08 06:53] LABS: CALCIUM 8.8 mg/dL (8.5-10.1); CARBON DIOXIDE 29.8 mmol/L (21.0-32.0); POTASSIUM - SERUM 4.8 mmol/L (3.5-5.1)
[2017-12-08 07:05] LABS: CREATININE - SERUM 1.2 mg/dL (0.6-1.3)
[2017-12-08 08:24] VITALS: BP 135/48
[2017-12-08 12:50] VITALS: BP 148/52
[2017-12-08 16:30] VITALS: BP 126/52
[2017-12-08 20:30] VITALS: BP 148/50
[2017-12-09 04:30] VITALS: BP 136/62
[2017-12-09 07:13] LABS: BASOPHILS 0.1 % (0-2); EOSINOPHILS 0.9 % (0-7); HEMATOCRIT 32.1 % (36.0-48.0); HEMOGLOBIN 9.9 g/dL (12-16); IMMATURE GRANULOCYTES 0.4 % (0-5); LYMPHOCYTES 9.4 % (15-50); MCH 28.7 pg (26.0-34.0); MCHC 30.8 g/dL (31.0-37.0); MEAN PLATELET VOLUME 9.3 fL (7.4-10.4); MONOCYTES 8.9 % (2-11); NEUTROPHILS 80.3 % (40-80); PLATELET COUNT 326 10x3/uL (130-400); RBC 3.45 10x6/uL (4.00-5.40); RDW 16.5 % (11.5-14.5)
[2017-12-09 07:26] LABS: ANION GAP 8.4 mmol/L (8-16); CALCIUM 8.4 mg/dL (8.5-10.1); POTASSIUM - SERUM 4.4 mmol/L (3.5-5.1)
[2017-12-09 08:53] VITALS: BP 137/86
[2017-12-09 12:19] VITALS: BP 132/77
[2017-12-09 16:53] VITALS: BP 116/47
[2017-12-09 20:48] VITALS: BP 131/45
[2017-12-10 01:05] VITALS: BP 137/59
[2017-12-10 05:15] VITALS: BP 145/46
[2017-12-10 08:42] VITALS: BP 135/40
[2017-12-10 10:59] LABS: BASOPHILS 0.1 % (0-2); EOSINOPHILS 1.1 % (0-7); HEMATOCRIT 35.8 % (36.0-48.0); IMMATURE GRANULOCYTES 0.4 % (0-5); LYMPHOCYTES 11.3 % (15-50); MCH 29.1 pg (26.0-34.0); MCHC 30.7 g/dL (31.0-37.0); MCV 94.7 fL (80.0-100.0); MEAN PLATELET VOLUME 9.1 fL (7.4-10.4); MONOCYTES 10.2 % (2-11); NEUTROPHILS 76.9 % (40-80); PLATELET COUNT 305 10x3/uL (130-400); RBC 3.78 10x6/uL (4.00-5.40); RDW 16.5 % (11.5-14.5); WBC 10.6 10x3/uL (4.8-10.8)
[2017-12-10 11:42] LABS: ANION GAP 12.4 mmol/L (8-16); CALCIUM 8.4 mg/dL (8.5-10.1); CARBON DIOXIDE 29.4 mmol/L (21.0-32.0); CREATININE - SERUM 1.1 mg/dL (0.6-1.3); POTASSIUM - SERUM 4.8 mmol/L (3.5-5.1)
[2017-12-10 12:27] VITALS: BP 144/44
[2017-12-10 17:13] LABS: FUNGUS STAIN Final report (())
[2017-12-10 17:13] LABS: FUNGUS STAIN Final report (())
[2017-12-10 20:48] VITALS: BP 142/40
[2017-12-11 06:57] VITALS: BP 162/48
[2017-12-11 09:16] LABS: BASOPHILS 0.1 % (0-2); EOSINOPHILS 0.9 % (0-7); HEMATOCRIT 37.2 % (36.0-48.0); HEMOGLOBIN 11.4 g/dL (12-16); IMMATURE GRANULOCYTES 0.4 % (0-5); LYMPHOCYTES 12.8 % (15-50); MCH 28.9 pg (26.0-34.0); MCHC 30.6 g/dL (31.0-37.0); MCV 94.2 fL (80.0-100.0); MEAN PLATELET VOLUME 9.7 fL (7.4-10.4); MONOCYTES 8.3 % (2-11); NEUTROPHILS 77.5 % (40-80); PLATELET COUNT 321 10x3/uL (130-400); RBC 3.95 10x6/uL (4.00-5.40); RDW 16.4 % (11.5-14.5); WBC 10.8 10x3/uL (4.8-10.8)
[2017-12-11 09:18] VITALS: BP 151/42
[2017-12-11 09:45] LABS: ANION GAP 13.1 mmol/L (8-16); CALCIUM 8.8 mg/dL (8.5-10.1); CARBON DIOXIDE 29.1 mmol/L (21.0-32.0); POTASSIUM - SERUM 4.2 mmol/L (3.5-5.1)
[2017-12-11 12:39] VITALS: BP 133/54
[2017-12-11] MEDS ORDERED: IPRAT-ALBUT 0.5-3 ML UPD (15:13)
[2017-12-11] MEDS ORDERED: BROVANA15 MCG/2 M INH (15:13)
[2017-12-11] MEDS ORDERED: PEPCID20 MG PO (15:15)
[2017-12-11] MEDS ORDERED: CARAFATE1 G/10 ML PO (15:15)
[2017-12-11] MEDS ORDERED: MUCINEX DM ER1 EAC1 PO (15:15)
[2017-12-11] MEDS ORDERED: DIFLUCAN100 MG PO (15:18)
[2017-12-11] MEDS ORDERED: VANCOMYCIN 750750 MG IV (15:19)
[2017-12-11 16:34] VITALS: BP 116/51
[2017-12-17 07:11] LABS: FUNGUS MYCOLOGY CULTURE Final report (())
[2017-12-20 20:09] LABS: FUNGUS MYCOLOGY CULTURE Final report (())
[2017-12-20 20:09] LABS: FUNGUS MYCOLOGY CULTURE Final report (())
[2017-12-20 20:09] LABS: FUNGUS MYCOLOGY CULTURE Final report (())
[2017-12-28 11:19] LABS: FUNGUS MYCOLOGY CULTURE Final report (())
[2018-01-02 07:32] LABS: FUNGUS CULTURE RESULT 1 Candida albicans (()); FUNGUS MYCOLOGY CULTURE Final report (())
[2018-01-04 11:21] LABS: FUNGUS MYCOLOGY CULTURE Final report (())
[2018-01-11 11:20] LABS: ACID FAST CULTURE Negative (()); ACID FAST SMEAR Negative (())
[2018-01-17 15:25] LABS: ACID FAST CULTURE Negative (()); ACID FAST SMEAR Negative (())
[2018-01-17 15:25] LABS: ACID FAST CULTURE Negative (()); ACID FAST SMEAR Negative (())
[2018-01-17 15:25] LABS: ACID FAST CULTURE Negative (()); ACID FAST SMEAR Negative (())
[2018-01-25 07:34] LABS: ACID FAST CULTURE Negative (()); ACID FAST SMEAR Negative (())
[2018-01-25 07:34] LABS: ACID FAST CULTURE Negative (()); ACID FAST SMEAR Negative (())
== END 2017-12-11 20:38 | DRG 166 ==
LOC: D.ER 17:07 → D.CVICU 22:11 → D.M2 22:11 → D.ICU 22:11 → D.CVICU 11-22 12:00 → D.ICU 11-26 01:57 → D.M2 11-27 17:53
PROVIDERS: Family Medicine; General Practice; Internal Medicine Cardiovascular Disease; Internal Medicine Gastroenterology; Internal Medicine Nephrology; Internal Medicine Pulmonary Disease; Specialist
PROC: 0W994ZZ Drainage of Right Pleural Cavity, Percutaneous Endoscopic Approach (ICD-10-PCS; 2017-11-22)
PROC: 0B9F8ZX Drainage of Right Lower Lung Lobe, Via Natural or Artificial Opening Endoscopic, Diagnostic (ICD-10-PCS; 2017-11-22)
PROC: 3E0L4GC Introduction of Other Therapeutic Substance into Pleural Cavity, Percutaneous Endoscopic Approach (ICD-10-PCS; 2017-11-22)
PROC: 0BBF4ZX Excision of Right Lower Lung Lobe, Percutaneous Endoscopic Approach, Diagnostic (ICD-10-PCS; principal; 2017-11-22 08:45)
PROC: 0W993ZZ Drainage of Right Pleural Cavity, Percutaneous Approach (ICD-10-PCS; 2017-11-30)
PROC: 0D758ZZ Dilation of Esophagus, Via Natural or Artificial Opening Endoscopic (ICD-10-PCS; 2017-12-02)
PROC: 0DB78ZX Excision of Stomach, Pylorus, Via Natural or Artificial Opening Endoscopic, Diagnostic (ICD-10-PCS; 2017-12-02)
PROC: 0B968ZZ Drainage of Right Lower Lobe Bronchus, Via Natural or Artificial Opening Endoscopic (ICD-10-PCS; 2017-12-05)
PROC: 0B958ZZ Drainage of Right Middle Lobe Bronchus, Via Natural or Artificial Opening Endoscopic (ICD-10-PCS; 2017-12-05)
DX: J90 Pleural effusion, not elsewhere classified (principal); J18.9 Pneumonia, unspecified organism; I50.21 Acute systolic (congestive) heart failure; J44.0 Chronic obstructive pulmonary disease with (acute) lower respiratory infection; J44.1 Chronic obstructive pulmonary disease with (acute) exacerbation; J98.11 Atelectasis; A04.72 Enterocolitis due to Clostridium difficile, not specified as recurrent; I11.0 Hypertensive heart disease with heart failure; I25.10 Atherosclerotic heart disease of native coronary artery without angina pectoris; E11.9 Type 2 diabetes mellitus without complications; E87.6 Hypokalemia; G89.29 Other chronic pain; M54.9 Dorsalgia, unspecified; E27.9 Disorder of adrenal gland, unspecified; D50.9 Iron deficiency anemia, unspecified; I34.0 Nonrheumatic mitral (valve) insufficiency; I27.20 Pulmonary hypertension, unspecified; K22.2 Esophageal obstruction; K21.0 Gastro-esophageal reflux disease with esophagitis; K29.80 Duodenitis without bleeding; K29.00 Acute gastritis without bleeding; R13.12 Dysphagia, oropharyngeal phase; Z95.1 Presence of aortocoronary bypass graft; Z87.891 Personal history of nicotine dependence; T17.990A Other foreign object in respiratory tract, part unspecified in causing asphyxiation, initial encounter

== ENCOUNTER 2017-12-11 20:39 | Inpatient (IN) | payer MEDICARE ==
[~2017-12-11] VITALS: Ht 157.5 cm; Wt 83.5 kg
--- NOTE | ~2017-12-11 | RHP ---
PATIENT: SARY REVELES MEDICAL RECORD: [id number] ACCOUNT: [id number] LOCATION:[facility]1115 : 57 ADMISSION DATE: 12/11/17 REHABILITATION HISTORY AND PHYSICAL EXAMINATION POST ADMISSION PHYSICIAN EXAMINATION DATE OF ADMISSION TO THE REHAB: 12/11/2017 ADMITTING DIAGNOSIS: Disuse myopathy. HISTORY OF PRESENT ILLNESS: The patient is a 62-year-old female patient admitted for neurological condition. She apparently presented to the ED with acute onset of shortness of breath, diaphoresis, pleuritic chest pain and coughing. She has got a past medical history of hypertension, diabetes, COPD, coronary artery disease with history of a CABG approximately in , was previously a tobacco smoker until about a month prior to this acute hospital admit. She has not been feeling well for 2 to 3 days prior to this admit. She was found to have leukocytosis. There was a large right pleural effusion. She has had an extended stay in acute hospital with multiple consults including pulmonary, cardiology, cardiovascular surgery, gastroenterology, interventional radiology. She has had 3 thoracentesis to draw fluid off her right lung. She tested positive for CTD, was in isolation, but is now having formed stools and believe that her gastric problems have resolved. She is currently on oxygen per nasal cannula. She has got a new onset of urinary incontinence, becomes very weak with her acute hospital stay and proximal muscle weakness on arising from bed to chair. She is living in an apartment with her daughter and was moderately independent with rolling walker for mobility and is independent with her ADLs. Currently, she is set up for mod assist for ADLs, mod assist to max assist for mobility. She plans to return to her apartment after her acute stay hopefully at her prior level of functioning or better. COMORBIDITIES: Include dysphagia, right-sided pleural effusion, lung biopsy, right lower lobe community-acquired pneumonia, difficulty swallowing, COPD, hypertension, debility, microcytic anemia, hypokalemia, chest pain, shortness of breath, diabetes, chronic asthma, acute hypokalemia, coronary artery disease and CHF. PAST MEDICAL HISTORY: Significant for COPD, coronary artery disease, hypertension, congestive heart failure, Herr's palsy, diabetes, COPD, hypertension and asthma. PAST SURGICAL HISTORY: Includes coronary bypass grafting, femoral popliteal bypass, tonsillectomy, carpal tunnel surgery and lens replacement. ALLERGIES: LISINOPRIL AND CODEINE. CURRENT MEDICATIONS: Include Floranex daily, MiraLax 17 grams in 8 ounces of water daily, DuoNeb updrafts q.i.d., isosorbide 120 mg daily, Neurontin 90 mg every 8 hours, morphine controlled-release 15 mg b.i.d., furosemide 40 mg daily, Diflucan 100 mg daily, carvedilol 6.25 mg b.i.d. with meals, Advair 2 puffs b.i.d., aspirin chewable 81 mg daily, vancomycin 750 mg every 12 hours, tramadol 50 mg every 6 hours p.r.n., Carafate 1 g every morning and at bedtime, Humalog low-resistant sliding scale with immediate-acting insulin. She is on Mucinex D 1 tab b.i.d., Pepcid 20 mg b.i.d. and Ventolin as needed. HISTORY AND PHYSICAL [id number] SARY REVELES HABITS: Does have a history of tobacco use. She quit about a week ago prior to her admit. FAMILY HISTORY: Noncontributory. SOCIAL HISTORY: The patient hopes to return back home to her apartment, get back to her prior level of functioning. REVIEW OF SYSTEMS: GENERAL: Does complain of weakness and fatigue. HEENT: Denies complaint of cold, cough, and congestion. CARDIOVASCULAR: Denies any chest pain. PHYSICAL EXAMINATION: VITAL SIGNS: Stable. She is afebrile. GENERAL: A somewhat obese female in no acute distress, alert upon exam. HEENT: Normocephalic and atraumatic. Mucosa moist. NECK: Supple, with no lymphadenopathy. LUNGS: Clear in upper [place] with decreased breath sounds in the bases. HEART: Irregular rate and rhythm. ABDOMEN: Benign. EXTREMITIES: No clubbing, cyanosis or edema. NEUROLOGIC: She seems intact other than she has weakness. LABORATORY DATA: Her sodium today is 136, potassium 4.0, BUN and creatinine of 8 and 1.1 and blood sugar is noted to be 160. 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 The patient has potential to make improvement. We instituted the following multidisciplinary therapies including, but not limited to physical, occupational, respiratory, speech, nutritional services, prosthetics and orthotics. Given her complex condition and risk for more complications, rehabilitation services cannot be provided at a low level of care such as a group home facility. PLAN: 1. Admit to [facility] rehab for intensive inpatient therapy to include the following disciplines: A. Physical therapy to improve gait, all transfer skills and bed mobility to a modified independent level. B. Occupational therapy to improve activities of daily living to a modified independent level. C. Case management to assist with discharge planning and placement options. D. Nutrition to assist with nutritional needs. E. Rehabilitation nursing to assist in monitoring the patient's underlying medical conditions and to assist with any type of bowel or bladder management. 2. The patient's current medication and medical care will be continued. 3. The patient will be placed on standard fall precautions. 4. The patient's estimated length of stay is approximately 7 to 10 days. 5. We will discuss this patient during care team staff meeting this week. TRANSINT:[id number] Voice Confirmation ID: [id number] DOCUMENT ID: [id number] HISTORY AND PHYSICAL [id number] SARY REVELES notes whether there has been none or any medical/functional change since admission: - No change since prescreen. EVELINA attests patient continues to be appropriate for IRF: - Continues to be appropriate. KAVYA HASSAN MD at 1149 CC: [id number] DICTATION DATE: 12/12/1715 GRINDING WHEEL DRESSER: 12/12/17 0957 ADM IN [facility] [address] [place] [id number]
[~2017-12-11 20:39] MED LIST: BAYER CHEWABLE81 MG PO; BP MED; BROVANA15 MCG/2 M INH; CARAFATE1 G/10 ML PO; COREG6.25 MG PO; DIFLUCAN100 MG PO; HUMALOG 30100 UNITS/ SC; HYDRALAZINE HCL25 MG PO; IPRAT-ALBUT 0.5-3 ML UPD; ISOSORBIDE MON120 M1 PO; LANTUS INSULIN10 ML SC; LASIX40 MG PO; MS CONTIN15 MG PO; MUCINEX DM ER1 EAC1 PO; NEURONTIN 300300 MG PO; OMEPRAZOLE20 M1 PO; PEPCID20 MG PO; PROVENTIL HFA6.7 GM INH; SYMBICORT 16010.2 GM INH; ULTRAM50 MG PO; VANCOMYCIN 750750 MG IV; [UNRECOGNIZED DRUG - REMARK]
[2017-12-11 20:40] VITALS: BP 112/50
[2017-12-12 02:40] VITALS: BP 112/50; BMI 33.7
[2017-12-12 08:00] VITALS: BP 117/29
[2017-12-12 08:52] LABS: CREATININE - SERUM 1.1 mg/dL (0.6-1.3)
[2017-12-12 10:14] LABS: BASOPHILS 0.2 % (0-2); EOSINOPHILS 1.2 % (0-7); HEMATOCRIT 35.9 % (36.0-48.0); HEMOGLOBIN 11.2 g/dL (12-16); IMMATURE GRANULOCYTES 0.5 % (0-5); MCHC 31.2 g/dL (31.0-37.0); MEAN PLATELET VOLUME 9.3 fL (7.4-10.4); NEUTROPHILS 81.1 % (40-80); PLATELET COUNT 302 10x3/uL (130-400); RBC 3.86 10x6/uL (4.00-5.40); RDW 16.4 % (11.5-14.5); WBC 10.6 10x3/uL (4.8-10.8)
[2017-12-12 14:28] VITALS: Ht 157.5 cm; Wt 83.5 kg
[2017-12-12 16:26] VITALS: BP 130/64
[2017-12-12 19:00] VITALS: BP 127/51
[2017-12-13 08:00] VITALS: BP 141/46
[2017-12-13 19:00] VITALS: BP 109/35
[2017-12-14 07:05] LABS: HEMATOCRIT 35.4 % (36.0-48.0); HEMOGLOBIN 11.4 g/dL (12-16); LYMPHOCYTES 15.6 % (15-50); MCH 29.2 pg (26.0-34.0); MCHC 32.2 g/dL (31.0-37.0); MCV 90.5 fL (80.0-100.0); NEUTROPHILS 74.2 % (40-80); PLATELET COUNT 285 10x3/uL (130-400); RBC 3.91 10x6/uL (4.00-5.40); RDW 15.5 % (11.5-14.5); WBC 9.8 10x3/uL (4.8-10.8)
[2017-12-14 07:37] LABS: CALCIUM 8.7 mg/dL (8.5-10.1)
[2017-12-14 08:00] VITALS: BP 155/53
[2017-12-14 19:00] VITALS: BP 103/37
[2017-12-15 08:00] VITALS: BP 115/43
[2017-12-16 08:00] VITALS: BP 127/50
[2017-12-16 20:30] VITALS: BP 114/57
[2017-12-17 06:40] LABS: BASOPHILS 0 % (0-2); EOSINOPHILS 0.8 % (0-7); HEMATOCRIT 32.8 % (36.0-48.0); HEMOGLOBIN 10.4 g/dL (12-16); IMMATURE GRANULOCYTES 0.4 % (0-5); LYMPHOCYTES 17.3 % (15-50); MCH 28.9 pg (26.0-34.0); MCHC 31.7 g/dL (31.0-37.0); MCV 91.1 fL (80.0-100.0); MEAN PLATELET VOLUME 9.3 fL (7.4-10.4); MONOCYTES 6.8 % (2-11); NEUTROPHILS 74.7 % (40-80); PLATELET COUNT 275 10x3/uL (130-400); RDW 15.2 % (11.5-14.5); WBC 9.3 10x3/uL (4.8-10.8)
[2017-12-17 07:07] LABS: ANION GAP 9.4 mmol/L (8-16); CARBON DIOXIDE 32.4 mmol/L (21.0-32.0); CREATININE - SERUM 1.2 mg/dL (0.6-1.3); POTASSIUM - SERUM 3.8 mmol/L (3.5-5.1)
[2017-12-17 08:23] VITALS: BP 113/40
[2017-12-17 19:00] VITALS: BP 127/55
[2017-12-18 08:28] VITALS: BP 128/39
[2017-12-18 19:00] VITALS: BP 119/44
[2017-12-19 07:06] LABS: BASOPHILS 0.1 % (0-2); EOSINOPHILS 0.8 % (0-7); HEMATOCRIT 34.4 % (36.0-48.0); HEMOGLOBIN 10.9 g/dL (12-16); IMMATURE GRANULOCYTES 0.7 % (0-5); LYMPHOCYTES 18.6 % (15-50); MCH 28.8 pg (26.0-34.0); MCHC 31.7 g/dL (31.0-37.0); MEAN PLATELET VOLUME 9.9 fL (7.4-10.4); MONOCYTES 5.6 % (2-11); NEUTROPHILS 74.2 % (40-80); PLATELET COUNT 223 10x3/uL (130-400); RBC 3.78 10x6/uL (4.00-5.40); RDW 15.3 % (11.5-14.5); WBC 7.7 10x3/uL (4.8-10.8)
[2017-12-19 07:19] LABS: ANION GAP 13.7 mmol/L (8-16); CALCIUM 8.8 mg/dL (8.5-10.1); CARBON DIOXIDE 29.9 mmol/L (21.0-32.0); CREATININE - SERUM 1.3 mg/dL (0.6-1.3); POTASSIUM - SERUM 3.6 mmol/L (3.5-5.1)
[2017-12-19 08:19] VITALS: BP 147/49
[2017-12-19 19:00] VITALS: BP 134/53
[2017-12-20 08:25] VITALS: BP 138/55
[2017-12-20 19:00] VITALS: BP 109/33
[2017-12-21 06:15] LABS: BASOPHILS 0.1 % (0-2); EOSINOPHILS 0.8 % (0-7); HEMATOCRIT 32.6 % (36.0-48.0); HEMOGLOBIN 10.4 g/dL (12-16); IMMATURE GRANULOCYTES 0.5 % (0-5); LYMPHOCYTES 12.9 % (15-50); MCH 28.5 pg (26.0-34.0); MCHC 31.9 g/dL (31.0-37.0); MCV 89.3 fL (80.0-100.0); MONOCYTES 6.2 % (2-11); NEUTROPHILS 79.5 % (40-80); RBC 3.65 10x6/uL (4.00-5.40); RDW 14.8 % (11.5-14.5); WBC 8.4 10x3/uL (4.8-10.8)
[2017-12-21 06:20] LABS: PLATELET COUNT 277 10x3/uL (130-400)
[2017-12-21 06:59] LABS: ANION GAP 11.6 mmol/L (8-16); CALCIUM 8.8 mg/dL (8.5-10.1); CARBON DIOXIDE 32.6 mmol/L (21.0-32.0); POTASSIUM - SERUM 3.2 mmol/L (3.5-5.1)
[2017-12-21 08:14] VITALS: BP 141/39
[2017-12-21 19:00] VITALS: BP 145/50
[2017-12-22 08:17] VITALS: BP 124/47
[2017-12-22 16:26] VITALS: BP 121/45
[2017-12-22 19:57] VITALS: BP 127/82
[2017-12-23 07:39] VITALS: BP 128/38
[2017-12-23 16:19] VITALS: BP 130/45
[2017-12-23 20:00] VITALS: BP 146/50
[2017-12-24 07:07] LABS: BASOPHILS 0.1 % (0-2); EOSINOPHILS 0.5 % (0-7); HEMATOCRIT 35.7 % (36.0-48.0); HEMOGLOBIN 11.4 g/dL (12-16); IMMATURE GRANULOCYTES 0.4 % (0-5); LYMPHOCYTES 14.4 % (15-50); MCH 28.6 pg (26.0-34.0); MCHC 31.9 g/dL (31.0-37.0); MCV 89.5 fL (80.0-100.0); MEAN PLATELET VOLUME 9.1 fL (7.4-10.4); MONOCYTES 5.4 % (2-11); NEUTROPHILS 79.2 % (40-80); PLATELET COUNT 267 10x3/uL (130-400); RBC 3.99 10x6/uL (4.00-5.40); WBC 10.9 10x3/uL (4.8-10.8)
[2017-12-24 07:24] LABS: ANION GAP 10.5 mmol/L (8-16); CALCIUM 9.3 mg/dL (8.5-10.1); CARBON DIOXIDE 32.4 mmol/L (21.0-32.0); CREATININE - SERUM 1.1 mg/dL (0.6-1.3)
[2017-12-24 07:27] LABS: POTASSIUM - SERUM 2.9 mmol/L (3.5-5.1)
[2017-12-24 08:00] VITALS: BP 152/53
[2017-12-24 19:00] VITALS: BP 123/54
[2017-12-25 07:06] LABS: ANION GAP 10.6 mmol/L (8-16); CALCIUM 8.9 mg/dL (8.5-10.1); CARBON DIOXIDE 32.5 mmol/L (21.0-32.0); CREATININE - SERUM 1.1 mg/dL (0.6-1.3); POTASSIUM - SERUM 3.1 mmol/L (3.5-5.1)
[2017-12-25 08:22] VITALS: BP 142/42
[2017-12-25 19:00] VITALS: BP 110/39
[2017-12-26 08:16] VITALS: BP 130/50
[2017-12-26] MEDS ORDERED: LEVAQUIN500 MG PO (11:47)
[2017-12-26] MEDS ORDERED: K-DUR20 MEQ PO (11:48)
== END 2017-12-26 16:15 | disposition home or self-care (01) | DRG 91 ==
LOC: D.REHAB 20:39
PROVIDERS: Emergency Medicine
DX: G72.89 Other specified myopathies (principal); J18.9 Pneumonia, unspecified organism; J90 Pleural effusion, not elsewhere classified; J44.0 Chronic obstructive pulmonary disease with (acute) lower respiratory infection; J44.1 Chronic obstructive pulmonary disease with (acute) exacerbation; I11.0 Hypertensive heart disease with heart failure; I50.9 Heart failure, unspecified; R53.81 Other malaise; D64.9 Anemia, unspecified; E87.6 Hypokalemia; J45.909 Unspecified asthma, uncomplicated; I25.10 Atherosclerotic heart disease of native coronary artery without angina pectoris; R13.12 Dysphagia, oropharyngeal phase; E11.65 Type 2 diabetes mellitus with hyperglycemia

== ENCOUNTER 2018-01-04 08:32 | Inpatient (IN) | payer MEDICARE ==
[~2018-01-04] VITALS: Ht 157.5 cm; Wt 81.6 kg
[2018-01-04] VITALS (17 sets, daily range): BP systolic 152–186; BP diastolic 81–119; BMI 26.8
--- NOTE | ~2018-01-04 | PN ---
PATIENT:SARY REVELES MEDICAL RECORD: [id number] LOCATION:D.ICU D.231 ADMISSION DATE: 01/04/18 PROGRESS NOTE DATE OF SERVICE: 01/08/2018 PLAN: 1. Advance ET tube 2 cm. 2. Repeat chest x-ray after advancement. 3. Thoracentesis by CT today. 4. Blood transfusions, 2 units of blood for severe anemia. 5. Check stool for GI bleed. 6. Increase PEEP to 12 and obtain gases. 7. Continue DVT prophylaxis. 8. Continue mechanical ventilation. SUBJECTIVE: The patient was intubated and brought to the intensive care unit. She has required 100% oxygen and noted to also have increased right pleural effusion. The patient desaturated to 82% this morning, PEEP was increased to 12. Ativan was given. The patient's blood pressure had dropped in the 70s. Levophed has been ordered. On exam, the patient had leak around the cuff. The capped was inflated and the leak stopped. On examination of the chest x-ray, the ET very high. She was asked to advance ET tube by 3 cm. A thoracentesis was also ordered. There is no fever or chills. PHYSICAL EXAMINATION: GENERAL: A middle-aged female who is in no acute distress, sedated. VITAL SIGNS: Temperature 97.3, heart rate of 63, respiratory rate of 36, blood pressure 70-86/56, saturations 86%. SHEENT: Unremarkable. Normocephalic. Pupils are equal and reactive. NECK: Supple. There is air leak noted. CHEST: Showed decreased breath sounds on the right. Crackles in the left. HEART: Shows no jugular venous distention, murmur or gallops. ABDOMEN: Benign. EXTREMITIES: Shows no clubbing, cyanosis or edema. NEUROLOGIC: The patient is intact. LABORATORY DATA: Showed CBC: White count 17.1, hemoglobin 6.8, platelet count is 175,000. Arterial blood gas: pH 7.44, pCO2 of 26, pO2 of 71, hemoglobin 6.1, this is on 100% FiO2. Chemistries remarkable for sodium 143, potassium 3.4. Chest x-ray showed moderate pleural effusion and high ET tube. ASSESSMENT: 1. Acute respiratory failure. 2. Moderate right pleural effusion. 3. Acute myocardial infarction, status post stent. 4. Hypovolemia. The patient has gained over 20 pounds since admission. Need to diurese when hemodynamics are stable. 5. MRSA pneumonia. 6. Iron deficiency anemia. 7. Coronary artery disease. DISCUSSION: NEUROPSYCHIATRIC: The patient moves all extremities. CARDIOVASCULAR: The patient has an IN. Hypotensive with anemia. PROGRESS NOTE [id number] SARY REVELES TRANSINT:[id number] Voice Confirmation ID: [id number] DOCUMENT ID: [id number] PADMA RONQUILLO at 1243 CC: [id number] DICTATION DATE: 01/08/18 1227 SCREENER AND BLENDER: 01/08/18 1247 DIS IN 01/09/18 [facility] [address] [place] [address]
--- NOTE | ~2018-01-04 | PN ---
PATIENT:SARY REVELES MEDICAL RECORD: [id number] LOCATION:D.[facility] D.231 ADMISSION DATE: 01/04/18 PROGRESS NOTE DATE OF SERVICE: 01/07/2018 SUBJECTIVE: She also had uncontrolled diabetes, was found in the Emergency Room to have acute myocardial infarction and there was a coronary artery lesion. The patient has had preserved left ventricle with diastolic dysfunction. She also has had a recurrent large lymphocytic exudate, which was treated with VATS, but showed some loculation. The patient has been on ventilator, sedated. There is no fever or chills. PHYSICAL EXAMINATION: GENERAL: Reveals middle-aged female who is obese on the ventilator, sedated on Diflucan. VITAL SIGNS: Temperature 97.3, heart rate 66, respiratory rate 20, blood pressure 111/54, saturation is 100. SHEENT: Unremarkable. The patient is normocephalic. Pupils are equal and reactive. NECK: Supple. There is no adenopathy. Trachea is midline. CHEST: Showed some mild crackles and wheezes. HEART: Shows no jugular venous distention, murmur or gallops. ABDOMEN: Benign. EXTREMITIES: Shows no clubbing, cyanosis or edema. LABORATORY DATA: Showed white count is 20.9, hemoglobin 8.2, and platelet count is 225,000. Arterial Blood gas: pH 7.46, pCO2 of 22, pO2 of 130, bicarbonate is 16. Chemistry is remarkable for potassium 3.3, creatinine is 0.9, carbon dioxide 19.5. Chest x-ray significant for progression of right-sided airspace disease, free fluid with complete out of the right hemithorax consistent with a combination of pleural effusion and atelectasis and postobstructive consolidation. ASSESSMENT: 1. Acute respiratory failure with hypoxemia. 2. Mild metabolic acidosis. The bicarbonate level is 20. We will follow. 3. Restrictive lung disease secondary to chronic pleural effusion. 4. Pneumonia. The patient is on antibiotics. 5. Possible metastatic adenopathy in the mediastinum. 6. Chronic obstructive pulmonary disease. On bronchodilators and antibiotics. DISCUSSION: NEUROPSYCHIATRY: The patient is sedated on the ventilator. We will reduce sedation. No focal signs. CARDIOVASCULAR: The patient has diastolic dysfunction with preserved left ventricular function. PULMONARY AND RESPIRATORY: The patient has restrictive lung disease with chronic pleural effusion, possibly secondary to metastatic disease. GASTROINTESTINAL AND DIETARY: The patient is currently n.p.o. PLAN: 1. Continue bronchodilators. 2. Continue mechanical ventilation. 3. Reduce sedation for more awakeness and alertness. PROGRESS NOTE [id number] SARY REVELES 4. Dietary consult for a tube feeding. 5. DVT prophylaxis. TRANSINT:[id number] Voice Confirmation ID: [id number] DOCUMENT ID: [id number] PADMA RONQUILLO at 1244 CC: [id number] DICTATION DATE: 01/07/18 1101 UNEMPLOYMENT CLAIMS ADJUDICATOR: 01/07/18 1252 ADM IN [facility] [address] [place] [address]
--- NOTE | ~2018-01-04 | DS ---
PATIENT:SARY REVELES :57 MEDICAL RECORD: [id number] DISCHARGE SUMMARY ADMISSION DATE: 01/04/18 DISCHARGE DATE: 01/09/18 DATE OF DISCHARGE: 01/09/2018. DIAGNOSES: 1. Acute inferior myocardial infarction. 2. PTCA stent vein graft to RCA. 3. Lung mass. 4. Pneumonia. 5. Respiratory failure. HOSPITAL COURSE: Mrs. Reveles presents with an acute inferior myocardial infarction, underwent PTCA stent; however, vein graft to the RCA. She was found to have an infiltrate on her left lower lobe. This did not clear. Her vibratory status worsened despite antibiotic therapy. She underwent bronchoscopy by pulmonary and was found to have a lung mass and a post-mass pneumonia. Her respiratory difficulties continued to get worse. She required intubation. She then became unstable from a cardiac arrhythmia standpoint with recurrent ventricular tachycardia. At that point, the family decided only comfort care and to terminally extubate her. She comfortably and soon after being terminally extubated. TRANSINT:[id number] Voice Confirmation ID: [id number] DOCUMENT ID: [id number] NICOLLE ROYAL MD at 1642 CC: [id number] DICTATION DATE: 01/09/18 1228 MOLD RUNNER: 01/09/18 1518 DIS IN 01/09/18 [place] [id number] [place] [address]
--- NOTE | ~2018-01-04 | OP ---
PATIENT NAME: SARY REVELES MEDICAL RECORD: [id number] :57 LOCATION:D.[facility] D.2313 ADMISSION DATE:01/04/18 SURGEON: NICOLLE ROYAL MD DATE OF OPERATION: 01/04/2018 PROCEDURES: 1. PTCA stent vein graft to RCA. 2. Left heart catheterization. 3. Selective coronary angiography. 4. Vein graft angiography. 5. YOUNG angiography. INDICATION: Acute inferior myocardial infarction and coronary artery disease. PROCEDURE IN DETAIL: After informed consent was obtained and after a detailed description of risks, benefits as well as alternative therapies, the patient elected to proceed with angiogram and angioplasty. The right femoral area was prepped and draped in normal sterile fashion. Right femoral artery was cannulated via modified Seldinger technique with the placement of 6-Uzbek sheath. All catheters exchanged through this sheath. FINDINGS: Left ventriculogram was performed in a standard 30-degree CHILDRESS view reveals global hypokinesis, ejection fraction 30%. SELECTIVE CORONARY ANGIOGRAPHY: 1. Left main is with no significant angiographic disease. 2. Left anterior descending is totally occluded mid vessel. 3. YOUNG to the LAD is widely patent. Distal LAD is widely patent. 4. Left circumflex is totally occluded in mid vessel. 5. Vein graft to the circumflex is widely patent. Distal circumflex is widely patent. 6. Right coronary artery is totally occluded in the mid vessel. 7. Vein graft to the right coronary artery is patent; however, there is 80% stenosis in the mid shaft. PTCA STENT OF THE RCA: The stent used is a 3.5 x 22 mm Integrity. Result was 0% residual stenosis. OVERALL IMPRESSION: Successful percutaneous transluminal coronary angioplasty stent of the vein graft to the right coronary artery going from 80% initial stenosis to 0% residual. TRANSINT:[id number] Voice Confirmation ID: [id number] DOCUMENT ID: [id number] NICOLLE ROYAL MD at 1834 CC: [id number] DICTATION DATE: 01/04/18 1000 FLOW TRADER: 01/04/18 1047 ADM IN [facility] [address] [place] [address]
--- NOTE | ~2018-01-04 | OP ---
PATIENT NAME: SARY REVELES MEDICAL RECORD: [id number] :57 LOCATION:D.[facility] D.2313 ADMISSION DATE:01/04/18 SURGEON: VALENTINO HYATT MD DATE OF OPERATION: 01/05/2018 PREOPERATIVE DIAGNOSES: 1. Need for IV access. 2. Coronary artery disease status post percutaneous transluminal coronary angioplasty with stenting. 3. Recent non-ST elevated myocardial infarction. 4. History of congestive heart failure, undifferentiated. POSTOPERATIVE DIAGNOSES: 1. Need for IV access. 2. Coronary artery disease status post percutaneous transluminal coronary angioplasty with stenting. 3. Recent non-ST elevated myocardial infarction. 4. History of congestive heart failure, undifferentiated. PROCEDURE: Left subclavian vein central venous line placement. SURGEON: Valentino Hyatt MD REPORT OF PROCEDURE: The patient's left chest was prepped and draped in sterile fashion. A 5 mL of 1% lidocaine with epinephrine was infused into the surrounding tissues. A needle was used to cannulate the left subclavian vein and a guidewire was advanced with ease. Over this wire, a dilator was placed followed by the triple lumen catheter. The catheter aspirated nonpulsatile dark blood and flushed easily in all 3 ports. This was sutured into place with 3-0 silk ties and dressed appropriately. COMPLICATIONS: None. CONDITION: Stable. ANESTHESIA: Local. BLOOD LOSS: Minimal. Procedure done at the bedside. TRANSINT:[id number] Voice Confirmation ID: [id number] DOCUMENT ID: [id number] VALENTINO HYATT MD at 1110 CC: [id number] DICTATION DATE: 01/05/18 1241 AIRPLANE RENTAL CLERK: 01/05/18 1254 DIS IN 01/09/18 [place] [id number] [place] [address]
--- NOTE | ~2018-01-04 | HP ---
PATIENT: SARY REVELES MEDICAL RECORD: [id number] ACCOUNT: [id number] LOCATION:[facility]2313 : 57 ADMISSION DATE: 01/04/18 HISTORY AND PHYSICAL EXAMINATION ADMITTING DIAGNOSES: 1. Acute inferior myocardial infarction. 2. Coronary artery disease. 3. Previous coronary artery bypass graft surgery. 4. Chronic obstructive pulmonary disease. 5. Smoking. 6. Hypertension. 7. Right lower lobe pneumonia. HISTORY OF PRESENT ILLNESS: Ms. Reveles presents to the Emergency Room via EMS with chest pain. Her EKG is compatible with an acute inferior myocardial infarction. She is an extremely poor historian, but she does have a history of coronary artery bypass graft surgery, not sure when, not sure who follows her from a cardiac standpoint. Her chest pain started this morning. She does have a smoking history. She is on multiple medications for COPD as well. She is on Coreg and aspirin as well as Imdur. PHYSICAL EXAMINATION: GENERAL APPEARANCE: Well-nourished, well-developed, appears stated age. Level of distress, comfortable. PSYCHIATRIC: Mental status, alert, normal affect. Orientation, oriented to time, place and person. EYES: Lids and conjunctiva, noninjected. No discharge, no pallor. ENT: Lips, teeth, gums, normal dentition. Oropharynx, no cyanosis, no pallor. NECK: Carotid arteries, bilateral normal upstroke, no bruits, no thrills. JUGULAR VEINS: No jugular venous pressure or distention. CERVICAL LYMPH NODES: Nontender, nonenlarged. THYROID: Not enlarged. Nontender. No nodules. LUNGS: Respiratory effort, unlabored. CHEST: Normal curvature. No thoracic deformity. No chest wall tenderness. Percussion, resonant. Auscultation, clear. No wheezes, no rales, no rhonchi. CARDIOVASCULAR: Precordial exam, nondisplaced. No heaves or pericardial thrills. Rate and rhythm, regular. Heart sounds, normal S1, normal S2. No S3, no gallop, no rub. Systolic murmur, not heard. Diastolic murmur, not heard. EXTREMITIES: No cyanosis, no edema. Peripheral pulses, full and equal in all extremities, except as noted. No bruits appreciated. ABDOMEN: Soft, nondistended. Normal aorta. No bruit. Nontender. No masses. Liver, nontender, no hepatomegaly. Spleen, nontender, no splenomegaly. MUSCULOSKELETAL: No joint tenderness. No joint swelling. No erythema. NEUROLOGICAL: Normal gait, normal strength, normal tone. SKIN: Warm and dry. OVERALL IMPRESSION: Acute inferior myocardial infarction. We will proceed with coronary angiography. Further care depends upon the findings of the angiography. TRANSINT:[id number] Voice Confirmation ID: [id number] DOCUMENT ID: [id number] HISTORY AND PHYSICAL [id number] SARY REVELES JEFFREY MD at 1834 CC: [id number] DICTATION DATE: 01/04/18 09 BRONZER: 01/04/18 1144 ADM IN [facility] [address] [id number]
--- NOTE | ~2018-01-04 | HEMODYNAMI ---
PATIENT:SARY REVELES MEDICAL RECORD: [id number] : 57 [address] [id number] ADMISSION DATE: 01/04/18 Generatedon:01/04/201814:54 Patient name: SARY REVELES Patient #: [id number] SSN: DO B: 1955 Date of study: 01/04/2018 Page: Of Hemodynamic Procedure Report Patient Data Patient Demographics Procedure consent was obtained First Name: SARY Gender: Female Last Name: ANUSHKA : 1955 Patient #: [id number] Age: 62 year(s) Race: Unknown Additional ID: [id number] Contact details Address: [address] [place] [address] State: [place] City: [place] Zip code: [address] Admission Admission Data Admission Date: 01/04/2018 Admission Time: 12:33 Room #: [facility] Procedure Procedure Types Cath Procedure Diagnostic Procedure LHC LHC w/Coronaries PCI Procedure AMI/SVG/ELECTRIC SOLDERER PTCA or Stent SVG-BMS/AGUEDA Initial Procedure Description Procedure Date Procedure Date: 01/04/2018 Procedure Start Time: 9:38 Procedure End Time: 10:08 Procedure Staff Name Function Vannesa Herr RN Nurse Clem Maradiaga MD Performing Physician Hakan Hunt RT Monitor Rocio Fox RT Scrub Procedure Data Cath Procedure Fluoroscopy Diagnostic fluoroscopy Total fluoroscopy Time: 3.9 time: 3.9 min min Diagnostic fluoroscopy Total fluoroscopy dose: 463 dose: 463 mGy mGy Contrast Material Contrast Material Type Amount (ml) Isovue 300 73 Entry Location Entry Primary Successful Side Size Upsize Upsize Entry Closure Succes sful Closure Location (Fr) 1 (Fr) 2 (Fr) Remarks Device Remarks Femoral Right 6 Fr Exoseal artery Short Estimated blood loss: 10 ml Diagnostic catheters Device Type Used For End Catheter Placement MULTIPACK Pigtail 5 Fr Procedure catheter MULTIPACK JL 4.0 5Fr Procedure catheter MULTIPACK 3DRC 5Fr Procedure catheter DIAGNOSTIC AR 2 MOD 5 Fr Procedure catheter ([id number]) Procedure Complications No complications Procedure Medications Medication Administration Route Dosage Oxygen etCO2 Nasal cannula 2 l/min Lidocaine 2% added to field 20 Heparin Flush Bag added to field 2 bags (1000units/500ml NS) 0.9% NaCl I.V. 100 ml/hr Versed I.V. 1 mg Lopressor I.V. 5 mg Integrilin (Bolus I.V. 6.2 ml 2mg/ml) Nitro (50mg/250 D5W) Heparin Bolus I.V. 4000 units Cardene I.C. 300 mcg Versed I.V. 1 mg Plavix P.O. 600 mg Integrilin Drip I.V. drip 10.7 ml/hr (75mg/100ml) Hemodynamics Rest Heart Rate: 93 (bpm) Pressure Samples Time Site Value (mmHg) Purpose Heart Use Rate(bpm) 9:39 LV 210/8,9 Snapshot 83 Snapshots Pre Cath Intra NCS Post Cath Vital Signs Time Heart Resp SPO2 etCO2 NIBP (mmHg) Rhythm Pain Sedation Rate (ipm) (%) (mmHg) Status Level (bpm) 9:34:30 102 25 96 21 186/90(140) NSR 0 (11) 10(A) , No pain 9:39:17 80 27 99 13.5 179/87(131) NSR 0 (11) 10(A) , No pain 9:44:02 76 29 98 18 186/82(135) NSR 0 (11) 10(A) , No pain 9:48:50 72 27 99 21.8 175/68(121) NSR 0 (11) 10(A) , No pain 9:53:33 77 25 99 21 186/83(135) NSR 0 (11) 10(A) , No pain 9:58:20 108 23 99 11.3 185/78(139) NSR 0 (11) 10(A) , No pain 10:03:06 92 20 99 14.3 146/91(125) NSR 0 (11) 10(A) , No pain 10:08:06 92 8 16.5 Measuring NSR 0 (11) 10(A) , No pain 10:08:18 92 7 14.3 170/94(130) NSR 0 (11) 10(A) , No pain Medications Time Medication Route Dose Verified Delivered Reason Notes Effectiveness by by 9:32:31 Nitro (50mg/250 mcg/min Clem Salterie D5W) discontinued Hiren Herr RN 9:35:22 Oxygen etCO2 2 l/min Clem Granado used for Nasal Hiren Herr RN procedure cannula 9:35:33 Lidocaine 2% added 20ml vial Clem Nj for local to Hiren Maradiaga MD anesthetic field 9:35:39 Heparin Flush added 2 bags Clem Nj used for Bag to Hiren Maradiaga MD procedure (1000units/500ml field NS) 9:35:49 0.9% NaCl I.V. 100 ml/hr Clem Granado Per physician Hiren Herr RN 9:35:54 Versed I.V. 1 mg Clem Granado for sedation Hiren Herr RN 9:37:02 Lopressor I.V. 5 mg Clem Granado Per physician Hiren Herr RN 9:39:26 Integrilin I.V. 6.2 ml Clem Granado for wasted 3.8 (Bolus 2mg/ml) Hiren Herr RN antiplatelet ml of v ial therapy 9:43:37 Versed I.V. 1 mg Clem Granado for sedation Hiren Herr RN 9:46:32 Heparin Bolus I.V. 4000 units Clem Granado for verified Hiren Herr RN anticoagulation with dr maradiaga 9:47:47 Cardene I.C. 300 mcg Clem Nj for Hiren Maradiaga MD vasodilation 9:57:41 Plavix P.O. 600 mg Clem Granado for crushed and Hiren Herr RN antiplatelet in therapy applesauce. 10:06:49 Integrilin Drip I.V. 10.7 ml/hr Clem Granado for pt had (75mg/100ml) drip Hiren Herr RN antiplatelet vomited up therapy oral plavix. Procedure Log Time Note 9:17:06 Time tracking: Regular hours (M-F 7:00 - 5:00) 9:17:11 Plan of Care:Hemodynamics will remain stable., Cardiac rhythm will remain stable., Comfort level will be maintained., Respiratory function will remain adequate., Patient/ family verbilizes understanding of procedure., Procedure tolerated without complication., Recovers from procedure without complications.. 9:18:29 Hakan Hunt RT(R) sent for patient. Start room use. 9:30:04 Patient received from ED to CCL 2 Alert and oriented. Tansferred to table in Supine position. 9:30:05 Correct patient and procedure confirmed by team. 9:30:05 Warm blankets applied, and hansel hugger turned on for patient comfort. 9:32:31 Nitro (50mg/250 D5W) mcg/min discontinued was administered by Vannesa Herr RN; ; 9:33:25 Signed procedure consent form obtained from verbally. 9:33:38 ECG and BP/O2 sat monitors applied to patient. 9:33:39 Vital chart was started 9:33:41 Rhythm: sinus rhythm 9:33:42 Baseline sample Acquired. 9:33:50 Full Disclosure recording started 9:34:02 H&P Date Dictated: 01/04/2018 Emergent; H&P N/A. 9:34:04 Pre-procedure instructions explained to patient. 9:34:06 Pre-op teaching completed and patient verbalized understanding. 9:34:13 Family in patients room. 9:34:17 Patient NPO since Midnight. 9:34:19 Is the patient allergic to Iodine/contrast media? No. 9:34:26 Is patient on blood thinner?Unknown 9:34:27 Patient diabetic? Unknown. 9:34:34 Previous problem with sedation/anesthesia? Unknown ? 9:34:35 Snore? N/A 9:34:39 Sleep apnea? Unknown 9:34:41 Deviated septum? Unknown 9:34:42 Opens mouth fully? Unknown 9:34:44 Sticks out tongue? Unknown 9:34:46 Airway obstruction? Unknown ? 9:34:49 Dentures? Unknown ? 9:34:52 Pre procedure: right dorsailis pedis pulse 1+ Palpable, but thready & weak; easily obliterated 9:34:56 Patient pain scale 0/10 ?. 9:35:04 IV patent on arrival in right forearm with 0.9% NaCl at O. 9:35:05 Lab results completed and on chart. 9:35:09 Right groin area was prepped with chlora-prep and draped in sterile fashion 9:35:10 Sharps counted by scrub and verified by R.N. 9:35:10 Alarms reviewed by R. N. 9:35:11 Final Timeout: patient, procedure, and site verified with staff and physician. All members of the team are in agreement. 9:35:11 --------ALL STOP TIME OUT------ 9:35:13 Right groin site verified by team. 9:35:16 Physical assessment completed. ASA score P 3 - A patient with severe systemic disease as per Clem Maradiaga MD. 9:35:21 Sedation plan: IV Moderate Sedation Medication:Versed, Fentanyl 9:35:22 Oxygen 2 l/min etCO2 Nasal cannula was administered by Vannesa Herr RN; used for procedure; 9:35:33 Lidocaine 2% 20ml vial added to field was administered by Clem Maradiaga MD; for local anesthetic; 9:35:39 Heparin Flush Bag (1000units/500ml NS) 2 bags added to field was administered by Clem Maradiaga MD; used for procedure; 9:35:40 Use device set Femoral Dx 9:35:49 Use device set TAUTH PCI 9:35:49 0.9% NaCl 100 ml/hr I.V. was administered by Vannesa Herr RN; Per physician; 9:35:54 Versed 1 mg I.V. was administered by Vannesa Herr RN; for sedation; 9:35:58 ACIST Syringe (56615) opened to sterile field. 9:35:59 Medline Cath Pack ([id number]) opened to sterile field. 9:35:59 Bag Decanter (2002) opened to sterile field. 9:36:01 ACIST Hand Control (99095) opened to sterile field. 9:36:03 ACIST Manifold (97245) opened to sterile field. 9:36:08 Tegaderm 4 x 4 (1626W) opened to sterile field. 9:36:24 DIAGNOSTIC Multipack 5Fr catheter set ([id number]) opened to sterile field. 9:36:25 DIAGNOSTIC WIRE .035 260cm J wire (759927) opened to sterile field. 9:36:28 INFLATOR Merit BasixCompak (WC7204) opened to sterile field. 9:36:30 CHOICE PT Extra Support 182cm wire ([id number]) opened to sterile field. 9:36:32 SHEATH Prelude 6Fr 0.035 (PBG-2J-54-035) opened to sterile field. 9:37:02 Lopressor 5 mg I.V. was administered by Vannesa Herr RN; Per physician; 9:37:37 Zero performed for pressure channel P1 9:37:44 Zero performed for pressure channel P1 9:37:47 Zero performed for pressure channel P1 9:37:54 Zero performed for pressure channel P1 9:37:58 Zero performed for pressure channel P1 9:38:17 Procedure started. 9:38:20 Local anesthetic to right femoral artery with Lidocaine 2% by Clem Maradiaga MD.INITIAL ACCESS ONLY 9:38:27 A 6 Fr Short sheath was inserted into the Right Femoral artery 9:38:34 A MULTIPACK Pigtail 5 Fr catheter was advanced over the wire and used for Procedure. 9:39:08 LV gram done using CHILDRESS 9:39:10 Injector settings: Ml/sec: 10, Volume: 20, 9:39:15 EF : 30 % 9:39:17 LV hemodynamics recorded. 9:39:21 Catheter exchanged over wire. 9:39:26 Integrilin (Bolus 2mg/ml) 6.2 ml I.V. was administered by Vannesa Herr RN; for antiplatelet therapy; wasted 3.8 ml of vial 9:40:22 A MULTIPACK JL 4.0 5Fr catheter was advanced over the wire and used for Procedure. 9:40:33 LCA angiography performed. 9:40:51 Catheter exchanged over wire. 9:41:18 A MULTIPACK 3DRC 5Fr catheter was advanced over the wire and used for Procedure. 9:42:05 YOUNG to LAD angiography performed. 9:42:17 RCA angiography performed. 9:43:08 Catheter exchanged over wire. 9:43:14 A DIAGNOSTIC AR 2 MOD 5 Fr catheter ([id number]) was advanced over the wire and used for Procedure. 9:43:27 SVG to RCA angiography performed. 9:43:37 Versed 1 mg I.V. was administered by Vannesa Herr RN; for sedation; 9:43:58 GUIDE 6FR AR 2.0 catheter ([id number]) opened to sterile field. 9:44:16 SVG to Circ angiography performed. 9:46:27 Catheter removed. 9:46:32 Heparin Bolus 4000 units I.V. was administered by Vannesa Herr RN; for anticoagulation; verified with dr maradiaga 9:46:34 6 Fr AR 2 guide catheter was inserted over the wire 9:46:39 CHOICE PT ES wire advanced. 9:46:40 Wire advanced across lesion. 9:47:47 Cardene 300 mcg I.C. was administered by Clem Maradiaga MD; for vasodilation; 9:48:18 Place stent Inflation Number: 1 A INTEGRITY RX 3.5 x 22 stent ([id number]) was prepped and advanced across the Aorta Right -> Dist RCA. The stent was deployed at 21 ITZEL for 0:10 (min:sec). 9:48:50 Stent catheter was removed intact over wire. 9:48:51 Guide catheter removed. 9:48:51 Wire removed. 9:49:01 EXOSEAL 6Fr (EX600) opened to sterile field. 9:49:25 Sheath removed intact; hemostasis achieved with Exoseal to the Right Femoral artery. 9:49:27 Procedure ended.(Physican Out) 9:49:51 Fluoroscopy time 03.90 minutes. 9:53:14 Fluoroscopy dose: 463 mGy 9:53:14 Flurop Dose total: 463 9:57:41 Plavix 600 mg P.O. was administered by Vannesa Herr RN; for antiplatelet therapy; crushed and in applesauce. 10:05:45 Contrast amount:Isovue 300 73ml. 10:05:47 Sharps counted by scrub and verified by R.N. 10:05:51 Insertion/operative site no bleeding no hematoma. 10:05:59 Post right femoral artery:bleeding 10:06:07 FEMSTOP Gold ([id number]) opened to sterile field. 10:06:14 Femstop placed over the right femoral artery at 166 mmHg. Hemostasis achieved. 10:06:16 Post Procedure Pulses reassessed and unchanged 10:06:24 Post-procedure physical assessment completed. ASA score P 3 - A patient with severe systemic disease as per Clem Maradiaga MD. 10:06:45 Post procedure rhythm: unchanged. 10:06:48 Estimated blood loss: 10 ml 10:06:49 Integrilin Drip (75mg/100ml) 10.7 ml/hr I.V. drip was administered by Vannesa Herr RN; for antiplatelet therapy; pt had vomited up oral plavix. 10:06:50 Post procedure instruction explained to patient.Patient verbalizes understanding. 10:06:51 Patient needs reinforcement of post procedure teaching. 10:07:05 Procedure type changed to Cath procedure, Diagnostic procedure, LHC, LHC w/Coronaries, PCI procedure, AMI/SVG/ELECTRIC SOLDERER PTCA or Stent, SVG-BMS/AGUEDA Initial 10:08:17 Procedure and supply charges have been captured, reviewed, submitted and are correct. 10:08:21 Procedure Complication : No complications 10:08:23 See physician's report for complete and final results. 10:08:23 Vital chart was stopped 10:08:26 Report given to ICU. 10:08:28 Patient transfered to ICU with Stretcher. 10:08:31 Full Disclosure recording stopped 10:08:31 Procedure ended. 10:08:38 End room use (Document Last) Intervention Summary Intervention Notes Time ActionType Lesion and Equipment Action# Pressure Duration Attributes Used 9:48:18 Place stent Aorta Right INTEGRITY RX 1 21 00:10 -> Dist RCA 3.5 x 22 stent ([id number]) Device Usage Item Name Manufacture Quantity Catalog Number Hospital Part Current Minimal Lot# / Charge Number Stock Stock Serial# Code ACIST Syringe Acist 1 61833 839130 128952 398561 20 (45536) [employer] Bag Decanter Microtek 1 2002S 863406 78434 533253 5 (2002S) Medical Inc. Medline Cath Cardinal 1 [id number] 243367 68041 825517 5 Pack Health ([id number]) ACIST Hand Acist 1 21451 873350 882338 055545 5 Control (85754) [employer] Inc ACIST Manifold Acist 1 83610 372589 149197 151995 5 (00128) [employer] Tegaderm 4 x 4 3M 1 1626W 563845 134989 292226 5 (1626W) DIAGNOSTIC Cardinal 1 [id number] 622517 66459 254714 30 Multipack 5Fr Principle Power catheter set ([id number]) DIAGNOSTIC WIRE St Ricky 1 [id number] 484088 915804 735603 30 .035 260cm J wire (106554) INFLATOR Merit Merit 1 DR8028 820744 200726 323939 15 SpokenLayerctRoam Analytics ([id number]) CHOICE PT Extra Mccoll 1 [id number] 695022 391387 534613 5 Support 182cm Scientific wire ([id number]) SHEATH Prelude Merit 1 [id number] 351533 5888575 042345 5 6Fr 0.035 Medical (NIE-2P-26-035) MULTIPACK Cardinal 1 296549 5 Pigtail 5 Fr Health catheter MULTIPACK JL Cardinal 1 [id number] 5 4.0 5Fr Health catheter MULTIPACK 3DRC Cardinal 1 707192 5 5Fr catheter Health DIAGNOSTIC AR 2 Cardinal 1 [id number] 983787 946079 455292 20 MOD 5 Fr Health catheter ([id number]) GUIDE 6FR AR Medtronic 1 [id number] 138115 24326 428807 1 2.0 catheter ([id number]) INTEGRITY RX Medtronic 1 [id number] 435230 686041 747053 5 [id number] 3.5 x 22 stent ([id number]) EXOSEAL 6Fr Cardinal 1 EX600 980643 009941 646747 10 (EX600) Health FEMSTOP Gold St Ricky 1 [id number] 122392 917100 404385 5 ([id number]) Signature Audit Chilo Stage Time Signature Unsigned Intra-Procedure 01/04/2018 Hakan Churchill Counts 10:10:30 AM RT(R) RT(R) 01/04/2018 2:53:39 PM Intra-Procedure 01/04/2018 Vannesa Herr RN 2:54:34 PM Signatures Monitor : Hakan Hunt RT Signature : Date : Time : [address] [id number]
[~2018-01-04 08:32] MED LIST changes: +K-DUR20 MEQ PO; +LEVAQUIN500 MG PO
[2018-01-04 09:06] LABS: KETONE - SERUM SMALL mg/dL (NEGATIVE)
[2018-01-04 09:08] LABS: INR 1.31 (0.85-1.17); PROTIME 15.9 SECONDS (11.6-15.0)
[2018-01-04 09:31] LABS: ALBUMIN 2.6 g/dL (3.4-5.0); ALKALINE PHOSPHATASE 108 U/L (46-116); ALT (SGPT) 10 U/L (10-68); BILIRUBIN - TOTAL 0.45 mg/dL (0.2-1.3); CARBON DIOXIDE 25.8 mmol/L (21.0-32.0); CHLORIDE - SERUM 95 mmol/L (98-107); CREATINE KINASE 25 UL (21-215); CREATININE - SERUM 1.4 mg/dL (0.6-1.3); MAGNESIUM - SERUM 1.8 mg/dL (1.8-2.4); POTASSIUM - SERUM 3.2 mmol/L (3.5-5.1); PRO BNP 16227 pg/mL (0-125); PROTEIN - SERUM 8.7 g/dL (6.4-8.2); SODIUM 134 mmol/L (136-145); THYROID STIMULATING HORMONE 0.24 uIU/mL (0.36-3.74); UREA NITROGEN 26 mg/dL (7-18); eGFR NON AFRICAN AMERICAN 41 mL/min (90-120)
[2018-01-04 09:40] LABS: CALC OSMOLALITY 289 mosm/kg (275-300); LIPASE 45 U/L (73-393)
[2018-01-04 09:41] LABS: CALCIUM 13.9 mg/dL (8.5-10.1); GLUCOSE 410 mg/dL (74-106); TROPONIN-I 0.097 ng/mL (0.000-0.060)
[2018-01-04 09:43] LABS: C-REACTIVE PROTEIN 19.4 mg/dL (0.0-0.9)
[2018-01-05] VITALS (29 sets, daily range): BP systolic 55–186; BP diastolic 31–114; Ht 157.5 cm; Wt 81.6 kg
[2018-01-05 05:30] LABS: BASOPHILS 0 % (0-2); EOSINOPHILS 0 % (0-7); HEMATOCRIT 39.3 % (36.0-48.0); HEMOGLOBIN 12.8 g/dL (12-16); IMMATURE GRANULOCYTES 0.4 % (0-5); LYMPHOCYTES 8.3 % (15-50); MCHC 32.6 g/dL (31.0-37.0); MEAN PLATELET VOLUME 9.3 fL (7.4-10.4); MONOCYTES 4.8 % (2-11); NEUTROPHILS 86.5 % (40-80); PLATELET COUNT 408 10x3/uL (130-400); RBC 4.57 10x6/uL (4.00-5.40); RDW 15.3 % (11.5-14.5); WBC 23.1 10x3/uL (4.8-10.8)
[2018-01-05 06:08] LABS: ALBUMIN 2.2 g/dL (3.4-5.0); BILIRUBIN - TOTAL 0.29 mg/dL (0.2-1.3); CARBON DIOXIDE 28.2 mmol/L (21.0-32.0); CREATININE - SERUM 1.1 mg/dL (0.6-1.3); MAGNESIUM - SERUM 1.6 mg/dL (1.8-2.4); PHOSPHOROUS 1.7 mg/dL (2.5-4.9); PROTEIN - SERUM 7.4 g/dL (6.4-8.2)
[2018-01-05 06:15] LABS: ANION GAP 11.9 mmol/L (8-16); CALCIUM 14.2 mg/dL (8.5-10.1); POTASSIUM - SERUM 2.1 mmol/L (3.5-5.1)
[2018-01-05 13:26] LABS: APPEARANCE CLEAR (CLEAR); BILIRUBIN NEGATIVE (NEGATIVE); COLOR STRAW (YELLOW); GLUCOSE NEGATIVE (NEGATIVE); KETONE NEGATIVE (NEGATIVE); NITRITE NEGATIVE (NEGATIVE); PROTEIN NEGATIVE (NEGATIVE); SPECIFIC GRAVITY 1.005 (1.005-1.020); UROBILINOGEN NORMAL (NORMAL)
[2018-01-05 13:27] LABS: BACTERIA FEW /hpf (NONE SEEN); EPITHELIAL CELLS 0-5 /hpf (0-5); RED CELLS - URINE 0-5 /hpf (0-5); WHITE CELLS - URINE 0-5 /hpf (0-5); YEAST <1+ /hpf (NONE SEEN)
[2018-01-05 15:28] LABS: CARBON DIOXIDE 28.3 mmol/L (21.0-32.0); CREATININE - SERUM 1.2 mg/dL (0.6-1.3)
[2018-01-05 15:29] LABS: ANION GAP 14.3 mmol/L (8-16); CALCIUM 12.9 mg/dL (8.5-10.1); POTASSIUM - SERUM 2.6 mmol/L (3.5-5.1)
[2018-01-05 20:04] LABS: ANION GAP 19.3 mmol/L (8-16); CALCIUM 11.5 mg/dL (8.5-10.1); CARBON DIOXIDE 21.5 mmol/L (21.0-32.0)
[2018-01-05 20:06] LABS: CREATININE - SERUM 1.6 mg/dL (0.6-1.3)
[2018-01-05 20:07] LABS: POTASSIUM - SERUM 2.8 mmol/L (3.5-5.1)
[2018-01-05 20:22] LABS: MAGNESIUM - SERUM 2.6 mg/dL (1.8-2.4)
[2018-01-05 23:15] LABS: ANION GAP 14.6 mmol/L (8-16); CALCIUM 9.3 mg/dL (8.5-10.1); CARBON DIOXIDE 24.7 mmol/L (21.0-32.0); CREATININE - SERUM 1.2 mg/dL (0.6-1.3)
[2018-01-05 23:18] LABS: POTASSIUM - SERUM 2.3 mmol/L (3.5-5.1)
[2018-01-06] VITALS (46 sets, daily range): BP systolic 80–186; BP diastolic 46–76
[2018-01-06 06:35] LABS: BASOPHILS 0 % (0-2); EOSINOPHILS 0 % (0-7); IMMATURE GRANULOCYTES 0.5 % (0-5); LYMPHOCYTES 8.7 % (15-50); MCH 27.2 pg (26.0-34.0); MCHC 32.2 g/dL (31.0-37.0); MCV 84.6 fL (80.0-100.0); MEAN PLATELET VOLUME 9.1 fL (7.4-10.4); MONOCYTES 3.4 % (2-11); NEUTROPHILS 87.4 % (40-80); RDW 15.3 % (11.5-14.5)
[2018-01-06 06:36] LABS: HEMOGLOBIN 8.5 g/dL (12-16); RBC 3.12 10x6/uL (4.00-5.40); WBC 14.7 10x3/uL (4.8-10.8)
[2018-01-06 06:37] LABS: HEMATOCRIT 26.4 % (36.0-48.0); PLATELET COUNT 236 10x3/uL (130-400)
[2018-01-06 07:37] LABS: ALKALINE PHOSPHATASE 61 U/L (46-116); BILIRUBIN - DIRECT 0.05 mg/dL (0.00-0.30); BILIRUBIN - TOTAL 0.25 mg/dL (0.2-1.3); CALCIUM 8.4 mg/dL (8.5-10.1); CARBON DIOXIDE 23.5 mmol/L (21.0-32.0); SODIUM 148 mmol/L (136-145)
[2018-01-06 07:43] LABS: MAGNESIUM - SERUM 1.3 mg/dL (1.8-2.4)
[2018-01-06 07:44] LABS: ALBUMIN 1.4 g/dL (3.4-5.0); ALT (SGPT) 11 U/L (10-68); CALC OSMOLALITY 294 mosm/kg (275-300); CHLORIDE - SERUM 116 mmol/L (98-107); CREATININE - SERUM 0.8 mg/dL (0.6-1.3); GLUCOSE 58 mg/dL (74-106); PHOSPHOROUS 1.1 mg/dL (2.5-4.9); POTASSIUM - SERUM 2.5 mmol/L (3.5-5.1); PROTEIN - SERUM 4.6 g/dL (6.4-8.2); UREA NITROGEN 21 mg/dL (7-18); eGFR NON AFRICAN AMERICAN 77 mL/min (90-120)
[2018-01-06 12:01] LABS: CALC OSMOLALITY 287 mosm/kg (275-300); CALCIUM 8.2 mg/dL (8.5-10.1); CARBON DIOXIDE 20.7 mmol/L (21.0-32.0); CREATININE - SERUM 0.8 mg/dL (0.6-1.3); GLUCOSE 75 mg/dL (74-106); POTASSIUM - SERUM 5.3 mmol/L (3.5-5.1); SODIUM 144 mmol/L (136-145); UREA NITROGEN 19 mg/dL (7-18); eGFR NON AFRICAN AMERICAN 77 mL/min (90-120)
[2018-01-06 12:02] LABS: CHLORIDE - SERUM 117 mmol/L (98-107)
[2018-01-06 16:04] LABS: CALC OSMOLALITY 291 mosm/kg (275-300); CALCIUM 8.3 mg/dL (8.5-10.1); CARBON DIOXIDE 21.4 mmol/L (21.0-32.0); CHLORIDE - SERUM 115 mmol/L (98-107); CREATININE - SERUM 0.8 mg/dL (0.6-1.3); GLUCOSE 110 mg/dL (74-106); SODIUM 145 mmol/L (136-145); UREA NITROGEN 18 mg/dL (7-18); eGFR NON AFRICAN AMERICAN 77 mL/min (90-120)
[2018-01-06 16:10] LABS: POTASSIUM - SERUM 2.5 mmol/L (3.5-5.1)
[2018-01-06 20:51] LABS: ANION GAP 10.8 mmol/L (8-16); CALCIUM 8.2 mg/dL (8.5-10.1); CARBON DIOXIDE 21.7 mmol/L (21.0-32.0); CREATININE - SERUM 0.9 mg/dL (0.6-1.3)
[2018-01-06 20:53] LABS: POTASSIUM - SERUM 2.5 mmol/L (3.5-5.1)
[2018-01-07] VITALS (25 sets, daily range): BP systolic 102–186; BP diastolic 40–76
[2018-01-07 00:25] LABS: CALCIUM 8.3 mg/dL (8.5-10.1); CARBON DIOXIDE 21.1 mmol/L (21.0-32.0); CHLORIDE - SERUM 114 mmol/L (98-107); CREATININE - SERUM 0.7 mg/dL (0.6-1.3); SODIUM 145 mmol/L (136-145); UREA NITROGEN 14 mg/dL (7-18); eGFR NON AFRICAN AMERICAN 90 mL/min (90-120)
[2018-01-07 00:26] LABS: CALC OSMOLALITY 297 mosm/kg (275-300); GLUCOSE 246 mg/dL (74-106); PHOSPHOROUS 3.6 mg/dL (2.5-4.9)
[2018-01-07 00:27] LABS: POTASSIUM - SERUM 2.6 mmol/L (3.5-5.1)
[2018-01-07 04:51] LABS: HEMATOCRIT 25.2 % (36.0-48.0); HEMOGLOBIN 8.2 g/dL (12-16); MCH 27.9 pg (26.0-34.0); MCHC 32.5 g/dL (31.0-37.0); MCV 85.7 fL (80.0-100.0); MEAN PLATELET VOLUME 9.5 fL (7.4-10.4); PLATELET COUNT 225 10x3/uL (130-400); RBC 2.94 10x6/uL (4.00-5.40); RDW 15.6 % (11.5-14.5); WBC 20.9 10x3/uL (4.8-10.8)
[2018-01-07 05:14] LABS: ALBUMIN 1.3 g/dL (3.4-5.0); ALKALINE PHOSPHATASE 57 U/L (46-116); ALT (SGPT) 12 U/L (10-68); CALC OSMOLALITY 296 mosm/kg (275-300); CALCIUM 8.5 mg/dL (8.5-10.1); CARBON DIOXIDE 19.3 mmol/L (21.0-32.0); CHLORIDE - SERUM 115 mmol/L (98-107); CREATININE - SERUM 0.8 mg/dL (0.6-1.3); GLUCOSE 223 mg/dL (74-106); MAGNESIUM - SERUM 1.6 mg/dL (1.8-2.4); PHOSPHOROUS 3.3 mg/dL (2.5-4.9); PROTEIN - SERUM 4.3 g/dL (6.4-8.2); SODIUM 145 mmol/L (136-145); UREA NITROGEN 14 mg/dL (7-18); eGFR NON AFRICAN AMERICAN 77 mL/min (90-120)
[2018-01-07 05:15] LABS: POTASSIUM - SERUM 3.2 mmol/L (3.5-5.1)
[2018-01-07 05:46] LABS: EOSINOPHILS 1 % (0-7); LYMPHOCYTES 10 % (15-50); MONOCYTES 5 % (2-11); NEUTROPHILS 78 % (40-80); PLATELET ESTIMATE NORMAL
[2018-01-07 07:33] LABS: ANION GAP 13.8 mmol/L (8-16); CALCIUM 8.4 mg/dL (8.5-10.1); CARBON DIOXIDE 19.5 mmol/L (21.0-32.0); CREATININE - SERUM 0.9 mg/dL (0.6-1.3); POTASSIUM - SERUM 3.3 mmol/L (3.5-5.1)
[2018-01-07 11:57] LABS: ANION GAP 13.7 mmol/L (8-16); CALCIUM 8.6 mg/dL (8.5-10.1); CARBON DIOXIDE 20.3 mmol/L (21.0-32.0); CREATININE - SERUM 0.9 mg/dL (0.6-1.3)
[2018-01-07 12:47] LABS: PHOSPHOROUS 3.3 mg/dL (2.5-4.9)
[2018-01-07 12:48] LABS: MAGNESIUM - SERUM 2.5 mg/dL (1.8-2.4)
[2018-01-07 16:57] LABS: ANION GAP 12.2 mmol/L (8-16); CALCIUM 8.9 mg/dL (8.5-10.1); CARBON DIOXIDE 18.5 mmol/L (21.0-32.0); CREATININE - SERUM 0.9 mg/dL (0.6-1.3); PHOSPHOROUS 2.7 mg/dL (2.5-4.9)
[2018-01-07 17:01] LABS: MAGNESIUM - SERUM 1.8 mg/dL (1.8-2.4)
[2018-01-07 17:02] LABS: POTASSIUM - SERUM 2.7 mmol/L (3.5-5.1)
[2018-01-07 21:03] LABS: ANION GAP 10.6 mmol/L (8-16); CALCIUM 9.1 mg/dL (8.5-10.1); CARBON DIOXIDE 19.7 mmol/L (21.0-32.0); CREATININE - SERUM 0.9 mg/dL (0.6-1.3); PHOSPHOROUS 2.3 mg/dL (2.5-4.9); POTASSIUM - SERUM 3.3 mmol/L (3.5-5.1)
[2018-01-08] VITALS (30 sets, daily range): BP systolic 83–165; BP diastolic 45–96
[2018-01-08 00:24] LABS: CREATININE - SERUM 0.9 mg/dL (0.6-1.3); MAGNESIUM - SERUM 1.9 mg/dL (1.8-2.4); PHOSPHOROUS 2.3 mg/dL (2.5-4.9)
[2018-01-08 00:33] LABS: ANION GAP 8.8 mmol/L (8-16); POTASSIUM - SERUM 3.8 mmol/L (3.5-5.1)
[2018-01-08 05:02] LABS: BASOPHILS 0 % (0-2); EOSINOPHILS 0.1 % (0-7); HEMATOCRIT 21.6 % (36.0-48.0); IMMATURE GRANULOCYTES 0.4 % (0-5); LYMPHOCYTES 6.2 % (15-50); MCH 27.9 pg (26.0-34.0); MCHC 31.5 g/dL (31.0-37.0); MEAN PLATELET VOLUME 9.9 fL (7.4-10.4); MONOCYTES 1.5 % (2-11); NEUTROPHILS 91.8 % (40-80); RBC 2.44 10x6/uL (4.00-5.40); RDW 16.2 % (11.5-14.5); WBC 17.1 10x3/uL (4.8-10.8)
[2018-01-08 05:15] LABS: MCV 88.5 fL (80.0-100.0); PLATELET COUNT 175 10x3/uL (130-400)
[2018-01-08 05:18] LABS: HEMOGLOBIN 6.8 g/dL (12-16)
[2018-01-08 05:20] LABS: ANION GAP 11.4 mmol/L (8-16); BILIRUBIN - TOTAL 0.22 mg/dL (0.2-1.3); C-REACTIVE PROTEIN 15.7 mg/dL (0.0-0.9); CALCIUM 9.4 mg/dL (8.5-10.1); CARBON DIOXIDE 17.9 mmol/L (21.0-32.0); CREATININE - SERUM 0.9 mg/dL (0.6-1.3); POTASSIUM - SERUM 3.3 mmol/L (3.5-5.1); PROTEIN - SERUM 3.8 g/dL (6.4-8.2)
[2018-01-08 09:00] LABS: CALCIUM 9.5 mg/dL (8.5-10.1); CARBON DIOXIDE 19.9 mmol/L (21.0-32.0); CREATININE - SERUM 0.8 mg/dL (0.6-1.3); POTASSIUM - SERUM 3.4 mmol/L (3.5-5.1); SODIUM 143 mmol/L (136-145); UREA NITROGEN 11 mg/dL (7-18); eGFR NON AFRICAN AMERICAN 77 mL/min (90-120)
[2018-01-08 09:17] LABS: CALC OSMOLALITY 287 mosm/kg (275-300); GLUCOSE 178 mg/dL (74-106)
[2018-01-08 09:19] LABS: CHLORIDE - SERUM 117 mmol/L (98-107)
[2018-01-08 12:11] LABS: CALC OSMOLALITY 291 mosm/kg (275-300); CALCIUM 9.6 mg/dL (8.5-10.1); CREATININE - SERUM 0.8 mg/dL (0.6-1.3); GLUCOSE 205 mg/dL (74-106); POTASSIUM - SERUM 3.4 mmol/L (3.5-5.1); SODIUM 144 mmol/L (136-145); UREA NITROGEN 11 mg/dL (7-18); eGFR NON AFRICAN AMERICAN 77 mL/min (90-120)
[2018-01-08 12:19] LABS: CHLORIDE - SERUM 117 mmol/L (98-107)
[2018-01-08 15:27] LABS: ALBUMIN 0.9 g/dL (3.4-5.0); ANION GAP 15.5 mmol/L (8-16); BILIRUBIN - TOTAL 0.2 mg/dL (0.2-1.3); CALCIUM 9.5 mg/dL (8.5-10.1); POTASSIUM - SERUM 3.5 mmol/L (3.5-5.1); PROTEIN - SERUM 3.6 g/dL (6.4-8.2)
[2018-01-08 15:31] LABS: HEMATOCRIT 28.5 % (36.0-48.0); HEMOGLOBIN 8.7 g/dL (12-16); MCH 27.9 pg (26.0-34.0); MCHC 30.5 g/dL (31.0-37.0); MCV 91.3 fL (80.0-100.0); MEAN PLATELET VOLUME 10.3 fL (7.4-10.4); PLATELET COUNT 141 10x3/uL (130-400); RBC 3.12 10x6/uL (4.00-5.40); RDW 16.1 % (11.5-14.5); WBC 40.1 10x3/uL (4.8-10.8)
[2018-01-08 15:40] LABS: HEMATOCRIT 39.4 % (36.0-48.0)
[2018-01-08 15:56] LABS: EOSINOPHILS 1 % (0-7); LYMPHOCYTES 7 % (15-50); NEUTROPHILS 92 % (40-80); PLATELET ESTIMATE NORMAL
[2018-01-08 20:08] LABS: ACID FAST SMEAR Negative (()); AFB SPECIMEN PROCESSING Concentration (())
[2018-01-09] VITALS: BP 91/59
[2018-01-09 13:19] LABS: FUNGUS STAIN Final report (())
[2018-02-04 07:10] LABS: FUNGUS MYCOLOGY CULTURE Final report (())
== END 2018-01-09 02:41 | DRG 248 ==
LOC: D.ER 08:32 → D.CATH 08:32 → EDSTATUS 09:38 → D.ICU 12:33
PROVIDERS: Family Medicine; Internal Medicine; Internal Medicine Interventional Cardiology; Internal Medicine Nephrology; Internal Medicine Pulmonary Disease
PROC: B2151ZZ Fluoroscopy of Left Heart using Low Osmolar Contrast (ICD-10-PCS; 2018-01-04)
PROC: 4A023N7 Measurement of Cardiac Sampling and Pressure, Left Heart, Percutaneous Approach (ICD-10-PCS; 2018-01-04)
PROC: 02703DZ Dilation of Coronary Artery, One Artery with Intraluminal Device, Percutaneous Approach (ICD-10-PCS; principal; 2018-01-04 09:18)
PROC: B2181ZZ Fluoroscopy of Left Internal Mammary Bypass Graft using Low Osmolar Contrast (ICD-10-PCS; 2018-01-04 09:18)
PROC: 0BC38ZZ Extirpation of Matter from Right Main Bronchus, Via Natural or Artificial Opening Endoscopic (ICD-10-PCS; 2018-01-05)
PROC: 5A1945Z Respiratory Ventilation, 24-96 Consecutive Hours (ICD-10-PCS; 2018-01-05)
PROC: 0BH17EZ Insertion of Endotracheal Airway into Trachea, Via Natural or Artificial Opening (ICD-10-PCS; 2018-01-05)
PROC: 05H633Z Insertion of Infusion Device into Left Subclavian Vein, Percutaneous Approach (ICD-10-PCS; 2018-01-05)
DX: I97.190 Other postprocedural cardiac functional disturbances following cardiac surgery (principal); I21.A9 Other myocardial infarction type; J96.21 Acute and chronic respiratory failure with hypoxia; G93.40 Encephalopathy, unspecified; J15.212 Pneumonia due to Methicillin resistant Staphylococcus aureus; I21.19 ST elevation (STEMI) myocardial infarction involving other coronary artery of inferior wall; E87.2 Acidosis; J90 Pleural effusion, not elsewhere classified; I13.0 Hypertensive heart and chronic kidney disease with heart failure and stage 1 through stage 4 chronic kidney disease, or unspecified chronic kidney disease; I50.32 Chronic diastolic (congestive) heart failure; N39.0 Urinary tract infection, site not specified; J44.1 Chronic obstructive pulmonary disease with (acute) exacerbation; T82.218A Other mechanical complication of coronary artery bypass graft, initial encounter; I25.10 Atherosclerotic heart disease of native coronary artery without angina pectoris; E11.22 Type 2 diabetes mellitus with diabetic chronic kidney disease; N18.9 Chronic kidney disease, unspecified; E83.52 Hypercalcemia; E87.6 Hypokalemia; E83.42 Hypomagnesemia; E83.39 Other disorders of phosphorus metabolism; I34.0 Nonrheumatic mitral (valve) insufficiency; D50.9 Iron deficiency anemia, unspecified; E11.40 Type 2 diabetes mellitus with diabetic neuropathy, unspecified